=== PATIENT | male | born 1950 | race Caucasian/White ===

== ENCOUNTER 2018-08-05 12:29 | Emergency (ER) | payer OTHER, MEDICARE ==
[~2018-08-05] VITALS: Ht 198.1 cm; Wt 131.5 kg
[~2018-08-05 12:29] MED LIST: ASPIRIN EC81 MG PO; ATORVASTATIN CA80 MG PO; BENADRYL25 MG PO; LISINOPRIL10 MG PO; METOPROLOL TART50 MG PO; PRILOSEC OTC20 MG PO; SULFACETAMIDE S15 ML OD
== END 2018-08-05 14:20 | disposition home or self-care (01) ==
LOC: ED 12:29
DX: S01.81XA Laceration without foreign body of other part of head, initial encounter (principal); S80.02XA Contusion of left knee, initial encounter; I10 Essential (primary) hypertension; I25.2 Old myocardial infarction; Z95.5 Presence of coronary angioplasty implant and graft; Z87.891 Personal history of nicotine dependence; Z90.49 Acquired absence of other specified parts of digestive tract; Z88.5 Allergy status to narcotic agent; Z79.899 Other long term (current) drug therapy; Z79.82 Long term (current) use of aspirin; W01.0XXA Fall on same level from slipping, tripping and stumbling without subsequent striking against object, initial encounter; Z23 Encounter for immunization
CPT/HCPCS: 90715; 99283

== ENCOUNTER 2019-08-13 15:36 | Emergency (ER) | payer OTHER ==
[~2019-08-13] VITALS: Ht 198.1 cm; Wt 131.5 kg
[2019-08-13] MEDS ORDERED: CLEOCIN HCL300 MG PO (15:59)
== END 2019-08-13 16:11 | disposition home or self-care (01) ==
LOC: ED 15:36
DX: S60.552A Superficial foreign body of left hand, initial encounter (principal); I10 Essential (primary) hypertension; I25.2 Old myocardial infarction; Z95.5 Presence of coronary angioplasty implant and graft; Z87.891 Personal history of nicotine dependence; Z90.49 Acquired absence of other specified parts of digestive tract; Z88.5 Allergy status to narcotic agent; Z79.82 Long term (current) use of aspirin; Z79.899 Other long term (current) drug therapy; Z23 Encounter for immunization; W45.0XXA Nail entering through skin, initial encounter
CPT/HCPCS: 90471; 90715; 99283

== ENCOUNTER 2019-10-09 10:19 | Emergency (ER) | payer OTHER ==
[~2019-10-09] VITALS: Ht 198.1 cm; Wt 131.5 kg
--- OUTSIDE RECORDS SUMMARY | ~2019-10-09 | XMS | Encounter Summary ---
Demographics + + + | Address | [address] | | | [place] [address] | + + + | Home Phone | | + + + | Preferred Language | Unknown | + + + | Marital Status | | + + + | Worship Affiliation | Unknown | + + + | Race | Unknown | + + + | Ethnic Group | Unknown | + + + Author + + + | Author | [facility] | | | and [place] | + + + | Organization | [facility] | | | and [place] | + + + | Address | Unknown | + + + | Phone | Unavailable | + + + Care Team Providers + +------+ + | Care Program Dir Name | Role | Phone | + +------+ + PCP | Unavailable | + +------+ + Encounter Details +--------+ + + + + | Date | Type | Department | Care Team | Description | +--------+ + + + + | 09/05/ | Orders Only | [facility] | Reji Joy MD | | | 2018 | | CARDIOLOGY [place] | [address] | | | | | [address] | [place] [address] | | | | | [place], [place] | [phone] | | | | | [address] | | | | | | [phone] | | | +--------+ + + + + Social History + +-------+ +--------+------+ | Tobacco Use | Types | Packs/Day | Years | Date | | | | | Used | | + +-------+ +--------+------+ | Former Smoker | | | | | + +-------+ +--------+------+ + + | Comments: quit over 25 years as of 06/2014 | + + + + + | Sex Assigned at | Date Recorded | | | | + + + | Not on file | | + + + + + + + | Job Start Date | Occupation | Industry | + + + + | Not on file | Not on file | Not on file | + + + + + + + + | Travel History | Travel Start | Travel End | + + + + + + | No recent travel history available. | + + documented as of this encounter Plan of Treatment Not on filedocumented as of this encounter Visit Diagnoses Not on filedocumented in this encounter"
--- OUTSIDE RECORDS SUMMARY | ~2019-10-09 | XMS | Encounter Summary ---
Demographics + + + | Address | [address] | | | [place] [address] | + + + | Home Phone | | + + + | Preferred Language | Unknown | + + + | Marital Status | | + + + | Mosque Affiliation | Unknown | + + + | Race | Unknown | + + + | Ethnic Group | Unknown | + + + Author + + + | Author | [facility] | | | and [place] | + + + | Organization | [facility] | | | and [place] | + + + | Address | Unknown | + + + | Phone | Unavailable | + + + Care Team Providers + +------+ + | Care Polish Compounder Name | Role | Phone | + +------+ + PCP | Unavailable | + +------+ + Encounter Details +--------+ + + + + | Date | Type | Department | Care Team | Description | +--------+ + + + + | 07/12/ | Orders Only | [facility] | Conversion | | | 2015 | | CONVERSION [address] | Transaction, | | | | | [address] | Provider Unknown | | | | | [place], [place] | [phone] | | | | | [address] | | | | | | [phone] | | | +--------+ + + + + Social History + +-------+ +--------+------+ | Tobacco Use | Types | Packs/Day | Years | Date | | | | | Used | | + +-------+ +--------+------+ | Never Assessed | | | | | + +-------+ +--------+------+ + + + | Sex Assigned at [...]
--- OUTSIDE RECORDS SUMMARY | ~2019-10-09 | XMS | Encounter Summary ---
Demographics + + + | Address | [address] | | | [place] [address] | + + + | Home Phone | | + + + | Preferred Language | Unknown | + + + | Marital Status | | + + + | Bahai Affiliation | Unknown | + + + | Race | Unknown | + + + | Ethnic Group | Unknown | + + + Author + + + | Author | [facility] | | | and [place] | + + + | Organization | [facility] | | | and [place] | + + + | Address | Unknown | + + + | Phone | Unavailable | + + + Care Team Providers + +------+ + | Care Head End Desizing Machine Operator Name | Role | Phone | + +------+ + PCP | Unavailable | + +------+ + Encounter Details +--------+ + + + + | Date | Type | Department | Care Team | Description | +--------+ + + + + | 07/15/ | Orders Only | [facility] | Reji Joy MD | | | 2018 | | CARDIOLOGY [place] | [address] | | | | | [address] | [place] [address] | | | | | [place], [place] | [phone] | | | | | [address] | | | | | | [phone] | | | +--------+ + + + [...]
--- OUTSIDE RECORDS SUMMARY | ~2019-10-09 | XMS | Encounter Summary ---
Demographics + + + | Address | [address] | | | [place] [address] | + + + | Home Phone | | + + + | Preferred Language | Unknown | + + + | Marital Status | | + + + | Church Affiliation | Unknown | + + + | Race | Unknown | + + + | Ethnic Group | Unknown | + + + Author + + + | Author | [facility] | | | and [place] | + + + | Organization | [facility] | | | and [place] | + + + | Address | Unknown | + + + | Phone | Unavailable | + + + Care Team Providers + +------+ + | Care School Principal Name | Role | Phone | + +------+ + PCP | Unavailable | + +------+ + Encounter Details +--------+ + + + + | Date | Type | Department | Care Team | Description | +--------+ + + + + | 06/26/ | Orders Only | [facility] | Conversion | | | 2018 | | CONVERSION [address] | Transaction, | | | | | [address] | Provider Unknown | | | | | [place], [place] | [phone] | | | | | [address] | | | | | | [phone] | | | +--------+ + + + [...]
--- OUTSIDE RECORDS SUMMARY | ~2019-10-09 | XMS | Encounter Summary ---
Demographics + + + | Address | [address] | | | [place] [address] | + + + | Home Phone | | + + + | Preferred Language | Unknown | + + + | Marital Status | | + + + | Uatsdin Affiliation | Unknown | + + + | Race | Unknown | + + + | Ethnic Group | Unknown | + + + Author + + + | Author | [facility] | | | and [place] | + + + | Organization | [facility] | | | and [place] | + + + | Address | Unknown | + + + | Phone | Unavailable | + + + Care Team Providers + +------+ + | Care Hay Buckler Name | Role | Phone | + +------+ + PCP | Unavailable | + +------+ + Encounter Details +--------+ + + + + | Date | Type | Department | Care Team | Description | +--------+ + + + + | 12/12/ | Orders Only | [facility] | Reji Joy MD | | | 2016 | | [address] | [address] | | | | | [place], [place] | [place] [address] | | | | | [address] | [phone] | | | | | [phone] | | | +--------+ + + + [...] Not on filedocumented as of this encounter Procedures + +--------+ + + + | Procedure Name | Priori | Date/Time | Associated Diagnosis | Comments | | | ty | | | | + +--------+ + + + | LIPID PANEL | Routin | 12/13/2015 | | Results for this | | | e | 3:27 PM | | procedure are in the | | | | PDT | | results section. | + +--------+ + + + documented in this encounter Results Lipid Panel (12/13/2015 3:27 PM PDT) + + + + + + | Component | Value | Ref Range | Performed | Pathologist | | | | | At | Signature | + + + + + + | Cholesterol | 115 | mg/dL | EXTERNAL | | | | | | LAB | | + + + + + + | Triglycerid | 87 | mg/dL | EXTERNAL | | | es | | | LAB | | + + + + + + | HDL | 39 (L) | mg/dL | EXTERNAL | | | | | | LAB | | + + + + + + | LDL, | 59Comment: Testing | mg/dL | EXTERNAL | | | Calculated | performed at [facility];[address] | | LAB | | | [address];[place] [address] | | | | + + + + + + + + | Specimen | + + | Blood specimen | | (specimen) | + + + +---------+ + + | Performing | Address | City/State/Zipcode | Phone Number | | Organization | | | | + +---------+ + + | EXTERNAL LAB | | | | + +---------+ + + documented in this encounter Visit Diagnoses Not on filedocumented in this encounter"
--- OUTSIDE RECORDS SUMMARY | ~2019-10-09 | XMS | Clinical Summary ---
Demographics + + + | Address | [address] | | | [place] [address] | + + + | Home Phone | | + + + | Preferred Language | Unknown | + + + | Marital Status | | + + + | Worship Affiliation | Unknown | + + + | Race | Unknown | + + + | Ethnic Group | Unknown | + + + Author + + + | Author | [facility] | | | and [place] | + + + | Organization | [facility] | | | and [place] | + + + | Address | Unknown | + + + | Phone | Unavailable | + + + Care Team Providers + +------+ + | Care Roof Cement And Paint Maker Name | Role | Phone | + +------+ + PCP | Unavailable | + +------+ + Allergies + + + + + + | Active Allergy | Reactions | Severity | Noted | Comments | | | | | Date | | + + + + + + | Codeine | Nausea And Vomiting | Medium | /08/13 | | | | | | 15 | | + + + + + + Medications + + + +---------+------+------+-------+ | Medication | Sig | Dispensed | Refills | Star | End | Statu | | | | | | t | Date | s | | | | | | Date | | | + + + +---------+------+------+-------+ | | Take 4 tablets by | | 0 | 02/ | | Activ | | Ibuprofen-diphenhydr | mouth every evening. | | | 11/13 | | e | | AMINE Cit (IBUPROFEN | | | | 15 | | | | PM) 200-38 MG TABS | | | | | | | + + + +---------+------+------+-------+ | omeprazole | Take 20 mg by mouth | | 0 | 11/24 | | Activ | | (PRILOSEC) 20 mg | every morning before | | | 02/13 | | e | | capsule | breakfast. | | | 16 | | | + + + +---------+------+------+-------+ | diphenhydrAMINE | Take 50 mg by mouth | | 0 | 01/3 | | Activ | | (BENADRYL) 50 mg | every 6 (six) hours | | | 06/15 | | e | | capsule | as needed for | | | 18 | | | | | Itching. | | | | | | + + + +---------+------+------+-------+ | aspirin 81 MG EC | Take 1 tablet by | 90 | 3 | 06/27 | | Activ | | tablet | mouth daily. | tablet | | 02/13 | | e | | | | | | 18 | | | + + + +---------+------+------+-------+ | lisinopril | Take 1 tablet by | 90 | 3 | 02/1 | | Activ | | (PRINIVIL, ZESTRIL) | mouth daily. | tablet | | 9/20 | | e | | 10 mg tablet | | | | 18 | | | + + + +---------+------+------+-------+ | metoprolol | Take 0.5 tablets by | 90 | 3 | 02/1 | | Activ | | tartrate (LOPRESSOR) | mouth 2 (two) times | tablet | | 9/20 | | e | | 50 mg tablet | daily. | | | 18 | | | + + + +---------+------+------+-------+ | atorvaSTATin | Take 1 tablet by | 90 | 3 | 04/1 | | Activ | | (LIPITOR) 80 MG | mouth daily. | tablet | | 2/20 | | e | | tablet | | | | 18 | | | + + + +---------+------+------+-------+ Active Problems + + + | Problem | Noted Date | + + + | Other chest pain | 06/29/2014 | + + + | Acute DC, inferior wall, initial episode of care | 06/29/2014 | + + + | CAD (coronary artery disease), [place] coronary artery | 06/29/2014 | + + + | CAD (coronary artery disease) | | + + + + + | Overview: s/p stenting of the proximal ricght coronary artery | | with a 4x16 mm Promus Premier drug-eluting stent | + + + +---+ | HTN (hypertension) | | + +---+ | Hx of acute myocardial infarction of inferior wall | | + +---+ | Right shoulder injury | | + +---+ + + | Overview: vein grafting of artery | + + + +---+ | DJD (degenerative joint disease) | | + +---+ | Hyperlipidemia | | + +---+ Family History + + +------+ + | Medical History | Relation | Name | Comments | + + +------+ + | Alcohol abuse | Father | | | + + +------+ + | Heart attack | Maternal | | | | | Grandfath | | | | | er | | | + + +------+ + + +------+ + + | Relation | Name | Status | Comments | + +------+ + + | Father | | | | + +------+ + + | Father | | | | + +------+ + + | Maternal Grandfather | | | | + +------+ + + | Maternal Grandfather | | | | + +------+ + + | Mother | | | | + +------+ + + Social History + +-------+ +--------+------+ [...] recent travel history available. | + + Last Filed Vital Signs + + + + + | Vital Sign | Reading | Time Taken | Comments | + + + + + | Blood Pressure | 142/72 | 06/26/2017 1:24 PM | | | | | PST | | + + + + + | Pulse | 56 | 06/26/2017 1:24 PM | | | | | PST | | + + + + + | Temperature | - | - | | + + + + + | Respiratory Rate | 16 | 06/26/2017 1:24 PM | | | | | PST | | + + + + + | Oxygen Saturation | - | - | | + + + + + | Inhaled Oxygen | - | - | | | Concentration | | | | + + + + + | Weight | 125.6 kg (277 lb) | 06/26/2017 1:24 PM | | | | | PST | | + + + + + | Height | 200.7 cm (6' 7") | 06/26/2017 1:24 PM | | | | | PST | | + + + + + | Body Mass Index | 31.21 | 06/26/2017 1:24 PM | | | | | PST | | + + + + + Plan of Treatment + + + + + | Health Maintenance | Due Date | Last Done | Comments | + + + + + | Vaccine: | | | | | Dtap/Tdap/Td (1 - | 0 | | | | Tdap) | | | | + + + + + | Vaccine: Zoster (1 | | | | | of 2) | 9 | | | + + + + + | Vaccine: | | | | | Pneumococcal 65+ (1 | 4 | | | | of 2 - PCV13) | | | | + + + + + | Vaccine: Influenza | | | | | (Season Ended) | 0 | | | + + + + + Results Not on filefrom Last 3 Months
--- OUTSIDE RECORDS SUMMARY | ~2019-10-09 | XMS | Encounter Summary ---
Demographics + + + | Address | [address] | | | [place] [address] | + + + | Home Phone | | + + + | Preferred Language | Unknown | + + + | Marital Status | | + + + | Zoroastrianism Affiliation | Unknown | + + + | Race | Unknown | + + + | Ethnic Group | Unknown | + + + Author + + + | Author | [facility] | | | and [place] | + + + | Organization | [facility] | | | and [place] | + + + | Address | Unknown | + + + | Phone | Unavailable | + + + Care Team Providers + +------+ + | Care Housing Grant Analyst Name | Role | Phone | + [...] [address] | | | | | [place], [place] | [place] [address] | | | | | [address] | [phone] | | | | | [phone] | | | +--------+ + + + [...] | | | Calculated | performed at [facility];[address] | | LAB | | | | [address] | | | | | [address];[place] [address] | | | | + + + [...]
--- OUTSIDE RECORDS SUMMARY | ~2019-10-09 | XMS | Encounter Summary ---
Demographics + + + | Address | [address] | | | [place] [address] | + + + | Home Phone | | + + + | Preferred Language | Unknown | + + + | Marital Status | | + + + | Christian Affiliation | Unknown | + + + | Race | Unknown | + + + | Ethnic Group | Unknown | + + + Author + + + | Author | [facility] | | | and [place] | + + + | Organization | [facility] | | | and [place] | + + + | Address | Unknown | + + + | Phone | Unavailable | + + + Care Team Providers + +------+ + | Care Machine Tool Operator Name | Role | Phone | + +------+ + PCP | Unavailable | + +------+ + Encounter Details +--------+ + + + + | Date | Type | Department | Care Team | Description | +--------+ + + + + | 07/15/ | Orders Only | [facility] | Reji Joy MD | | | 2018 | | CARDIOLOGY [place] | [address] | | | | | [address] | [place] [address] | | | | | [place], [place] | [phone] | | | | | [address] | | | | | | [phone] | | | +--------+ + + + [...]
--- OUTSIDE RECORDS SUMMARY | ~2019-10-09 | XMS | Clinical Summary ---
Demographics + + + | Address | [address] | | | [place] [address] | + + + | Home Phone | | + + + | Preferred Language | Unknown | + + + | Marital Status | | + + + | Congregation Affiliation | Unknown | + + + | Race | Unknown | + + + | Ethnic Group | Unknown | + + + Author + + + | Author | [facility] (Historical as of | | | 01-10-19) | + + + | Organization | [facility] (Historical as of | | | 01-10-19) | + + + | Address | Unknown | + + + | Phone | Unavailable | + + + Support + + +---------+ + | Name | Relationship | Address | Phone | + + +---------+ + | Rajat Collins | ECON | Unknown | | + + +---------+ + | Jerilyn Pompa | ECON | Unknown | | + + +---------+ + | Gege Emerson | ECON | Unknown | Unavailable | + + +---------+ + Care Team Providers + +------+ + | Care Manufacturing Manager Name | Role | Phone | + +------+ + | Dr. Tiffanie | PP | Unavailable | + +------+ + Allergies + + + + + + | Active Allergy | Reactions | Severity | Noted | Comments | | | | | Date | | + + + + + + | Codeine | Nausea and Vomiting | Medium | 06/29/19 | | | | | | 15 | | + + + + + + Current Medications + + +--------+---------+------+------+-------+ | Prescription | Sig. | Disp. | Refills | Star | End | Statu | | | | | | t | Date | s | | | | | | Date | | | + + +--------+---------+------+------+-------+ | | Take 4 tablets by | | | | | Activ | | Ibuprofen-Diphenhydr | mouth every evening. | | | | | e | | amine Cit (IBUPROFEN | | | | | | | | PM) 200-38 MG TABS | | | | | | | + + +--------+---------+------+------+-------+ | omeprazole | Take 20 mg by mouth | | | | | Activ | | (PRILOSEC) 20 MG | every morning before | | | | | e | | capsule | breakfast. | | | | | | + + +--------+---------+------+------+-------+ | diphenhydrAMINE | Take 50 mg by mouth | | | | | Activ | | (BENADRYL) 50 MG | every 6 (six) hours | | | | | e | | capsule | as needed for | | | | | | | | Itching. | | | | | | + + +--------+---------+------+------+-------+ | aspirin (ASPIRIN | Take 1 tablet by | 90 | 3 | 02/1 | | Activ | | LOW DOSE) 81 MG EC | mouth daily. | tablet | | 9/20 | | e | | tablet | | | | 18 | | | + + +--------+---------+------+------+-------+ | lisinopril | Take 1 tablet by | 90 | 3 | 02/1 | | Activ | | (ZESTRIL) 10 MG | mouth daily. | tablet | | 9/20 | | e | | tablet | | | | 18 | | | + + +--------+---------+------+------+-------+ | metoprolol | Take 0.5 tablets by | 90 | 3 | 02/1 | | Activ | | (LOPRESSOR) 50 MG | mouth 2 (two) times | tablet | | 9/20 | | e | | tablet | daily. | | | 18 | | | + + +--------+---------+------+------+-------+ | atorvastatin | Take 1 tablet by | 90 | 3 | 04/1 | | Activ | | (LIPITOR) 80 MG | mouth daily. | tablet | | 2/20 | | e | | tablet | | | | 18 | | | + + +--------+---------+------+------+-------+ Active Problems + + + | Problem | Noted Date | + + + | Other chest pain | 06/29/2014 | + + + | Acute [place], inferior wall, initial episode of care | 06/29/2014 | + + + | CAD (coronary artery disease), [place] coronary artery | 06/29/2014 | + + [...] Comments | + + +------+ + | Alcoholism | Father | | | + + [...] + +------+ + + Social History + + + +--------+------+ | Tobacco Use | Types | Packs/Day | Years | Date | | | | | Used | | + + + +--------+------+ | Former Smoker | Cigarettes | | | | + + + +--------+------+ + +---+---+---+ | Smokeless Tobacco: | | | | | Never Used | | | | + +---+---+---+ + + | Comments: quit over 25 years as of 06/2014 | + + + + +---------+ + | Alcohol Use | Drinks/We | oz/Week | Comments | | | ek | | | + + +---------+ + | Yes | | | weekly | + + +---------+ + + + + | Sex Assigned at | Date Recorded | | | | + + + | Not on file | | + + + Last Filed Vital Signs + + + + | Vital Sign | Reading | Time Taken | + + + + | Blood Pressure | 142/72 | 06/26/2017 1:24 PM PST | + + + + | Pulse | 56 | 06/26/2017 1:24 PM PST | + + + + | Temperature | 36.7 C (98 F) | 07/02/2014 12:03 PM PST | + + + + | Respiratory Rate | 16 | 06/26/2017 1:24 PM PST | + + + + | Oxygen Saturation | 96% | 06/26/2017 1:24 PM PST | + + + + | Inhaled Oxygen | - | - | | Concentration | | | + + + + | Weight | 125.6 kg (277 lb) | 06/26/2017 1:24 PM PST | + + + + | Height | 200.7 cm (6' 7") | 06/26/2017 1:24 PM PST | + + + + | Body Mass Index | 31.21 | 06/26/2017 1:24 PM PST | + + + + Plan of Treatment + + + + + | Health Maintenance | Due Date | Last Done | Comments | + + + + + | Vaccine: | | | | | Dtap/Tdap/Td (1 - | 8 | | | | Tdap) | | | | + + + + + | Colon Cancer | | | | | Screening | 9 | | | | (Colonoscopy) | | | | + + + + + | Vaccine: Zoster (1 | | | | | of 2) | 9 | | | + + + + + | Vaccine: | | | | | Pneumococcal 65+ | 4 | | | | Low/Medium Risk (1 | | | | | of 2 - PCV13) | | | | + + + + + | Vaccine: Influenza | | 07/24/2016 | | | (Season Ended) | 0 | | | + + + + + Results Not on filefrom Last 3 Months Insurance + +--------+ +------+ + + | Payer | Benefi | Subscriber | Type | Phone | Address | | | t Plan | ID | | | | | | / | | | | | | | Group | | | | | + +--------+ +------+ + + | MEDICARE | MEDICA | [id number] | | | [address] | | | [place] | | | | [place] [address] | | | IP-OP | | | | | + +--------+ +------+ + + | [facility] | [place] | [id number] | | | | | | | | | | | | | HEALTH | | | | | | | CARE - | | | | | | | AARP | | | | | + +--------+ +------+ + + | [employer] | [employer] | [id number] | | [phone] [employer] [id number] | | ADMINISTRATION | [place] | | | [phone] | | | [address] | | | | [address] [place] | | | [place] | | | | [phone] | | | ON | | | | | + +--------+ +------+ + + + +--------+ +--------+ + + | Guarantor Name | Accoun | Relation to | Date | Phone | Billing Address | | | t Type | Patient | of | | | | | | | | | | + +--------+ +--------+ + + | MARY EMERSON | Person | Self [birth year] | Home: | [address] | | | al/Fam | | 1951 | [phone] | [place] | | | [place] | | | [address] | [phone] | + +--------+ +--------+ + + | MARY EMERSON | Vetera | Self | [birth year] | Home: | [address] | | | ns | | 1951 | [phone] | [place] | | | [place] | | | [address] | [phone] | | | strati | | | | | | | on | | | | | + +--------+ +--------+ + +
--- OUTSIDE RECORDS SUMMARY | ~2019-10-09 | XMS | Encounter Summary ---
Demographics + + + | Address | [address] | | | [place] [address] | + + + | Home Phone | | + + + | Preferred Language | Unknown | + + + | Marital Status | | + + + | Holiness Affiliation | Unknown | + + + | Race | Unknown | + + + | Ethnic Group | Unknown | + + + Author + + + | Author | [facility] | | | and [place] | + + + | Organization | [facility] | | | and [place] | + + + | Address | Unknown | + + + | Phone | Unavailable | + + + Care Team Providers + +------+ + | Care Margarine Churn Operator Name | Role | Phone | + +------+ + PCP | Unavailable | + +------+ + Encounter Details +--------+ + + + + | Date | Type | Department | Care Team | Description | +--------+ + + + + | 06/29/ | Hospital | [facility] | Reji Joy MD | Acute MT, inferior | | 2015 - | Encounter | [facility] | [address] | [address] | | | | INTENSIVE CARE UNIT | [place] [address] | episode of care | | 07/02/ | | [address] | [phone] | ([facility]); CAD (coronary | | 2014 | | [place], [place] | | artery disease), | | | | [address] | | [place] coronary | | | | [phone] | | artery | +--------+ + + + + Social [...] + + documented as of this encounter Discharge Summaries Reji Joy MD - 07/02/2014 11:57 AM PSTFormatting of this note might be different from t he original. Discharge Summaries by Reji Joy MD at 07/02/14 0461 Author: Reji Joy MD Service: Cardiology Author Type: Physician Filed: 07/04/14 3145 Date of Service: 07/02/14 9034 Status: Signed Composition Siding Worker: Reji Joy MD (Physician) Related Notes: Original Note by Reji Joy MD (Physician) filed at 07/02/14 1201 [facility] Service: Cardiology Discharge Summary Date of Admission: 06/29/2014 Date of Discharge: 07/02/2014 Discharge Physician: Reji Joy MD Discharge Diagnoses: 1. Acute inferior myocardial infarction status post stenting of the proximal right coronary artery with a 4 x 16 mm Promus Premier drug-eluting stent. 2. Preserved left ventricular systolic function. 3. One vessel coronary artery disease, as above. 4. Hypertension. BRIEF HISTORY OF PRESENTATION: Mary Emerson is a 63 y.o. male who Presented initially to [facility] with subsequent chest pain and was diagnosed with ST elevation in the inferior leads. He wa s transferred to [facility] for further care. For details regarding his presentation kindly refer to my H+P. No past medical history on file. No past surgical history on file. Allergies Allergen Reactions Codeine Nausea and Vomiting HOSPITAL COURSE: Mr. Emerson was taken to the catheterization lab on an emergent basis. Coronary angiography s uggested the presence of one vessel coronary artery disease with subtotal occlusion of the p roximal RCA which was primary stented with a 4 x 16 mm Promus Premier drug-eluting stent. Hi s left ventricular systolic function remained preserved. He was admitted to the intensive ca re unit as overflow from cardiac unit. He did well although he did have a couple of episodes of nonsustained ventricular tachycardia the first 24 hours after his presentation but that totally resolved thereafter. He has been ambulatory for 3 days with no recurrent chest pain. His CPK peaked at 1500, however came down to 202 today. He did have a small right groin hem atoma but his CBC remained stable. He will be discharged home in stable condition. He will f ollowup with me in 10 days. Mr. Emerson is a nonsmoker. I did talk to him about cardiac rehabilitation however at this p oint he lives in [place] where a cardiac rehab program is not available. I did talk to him about activities and diet extensively. Medication List START taking these medications aspirin 81 MG EC tablet QTY: 30 tablet Refills: 11 Take 1 tablet by mouth daily with breakfast. atorvastatin 80 MG tablet QTY: 30 tablet Refills: 11 Commonly known as: LIPITOR Take 1 tablet by mouth daily. clopidogrel 75 MG tablet QTY: 30 tablet Refills: 11 Commonly known as: PLAVIX Take 1 tablet by mouth daily. lisinopril 5 MG tablet QTY: 30 tablet Refills: 11 Commonly known as: ZESTRIL Take 1 tablet by mouth daily. metoprolol 25 MG tablet QTY: 60 tablet Refills: 11 Commonly known as: LOPRESSOR Take 1 tablet by mouth 2 (two) times daily. 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 You may get the following medications from any pharmacy - aspirin 81 MG EC tablet - atorvastatin 80 MG tablet - clopidogrel 75 MG tablet - lisinopril 5 MG tablet - metoprolol 25 MG tablet Disposition: Home Condition: Stable. Code Status: Full code Follow up: Per Pt None Reji Joy MD [address] [place] [id number] In 10 days Discharge took 25 minutes, to include final examination, discussion of admission, and prepa ration of prescriptions, instructions for on-going care, follow-up and documentation of disc harge summary. Reji Joy MD 07/02/2014 11:58 AM documented in this enco unter Medications at Time of Discharge + + + +---------+ + + | Medication | Sig | Dispensed | Refills | Start | End Date | | | | | | Date | | + + + +---------+ + + | metoprolol | Take 1 tablet by | 60 | 11 | 07/02/19 | | | tartrate (LOPRESSOR) | mouth 2 (two) times | tablet | | 15 | 6 | | 25 mg tablet | daily. | | | | | + + + +---------+ + + documented as of this encounter Progress Notes Conversion Transaction, Provider Unknown - 07/02/2014 12:26 PM PSTFormatting of this note m ight be different from the original. Progress Notes by Berkley Dillard RN at 07/02/141225 Author: Berkley Dillard RN Service: (none) Author Type: Registered Nurse Filed: 07/02/141225 Date of Service: 07/02/141225 Status: Signed Composition Siding Worker: Berkley Dillard RN (Registered Nurse) Discharge orders and prescriptions reviewed, patient stable at time of discharge, taken via wheelchair. Tele notified Reji Cormier MD - 07/01/2014 6:26 PM PSTFormatting of this note might be different from the orig inal. Progress Notes by Reji Joy MD at 07/01/141825 Author: Reji Joy MD Service: Cardiology Author Type: Physician Filed: 07/03/142015 Date of Service: 07/01/141825 Status: Signed Composition Siding Worker: Reji Joy MD (Physician) Related Notes: Original Note by Reji Joy MD (Physician) filed at 07/01/141828 [facility] Service: Cardiology/[facility] Progress Note RE: Mary Emerson : 1950 DATE OF SERVICE: 06/29/2014 PROVIDER:Reji Joy Pt is seen for F/U on: Acute MT SUBJECTIVE: Mary was ambulatory overnight and since yesterday. He has not had any significant symptom s of chest pain or shortness of breath. He had no further episodes of nonsustained ventricul ar tachyarrhythmias. CURRENT MEDICATIONS: Scheduled Meds: aspirin 81 mg Oral Daily with breakfast atorvastatin 80 mg Oral Daily clopidogrel 75 mg Oral Daily lisinopril 5 mg Oral Daily metoprolol 25 mg Oral BID pneumococcal 23-valent vaccine 0.5 mL Intramuscular Once Immunization Continuous Infusions: PRN Meds:.acetaminophen OR acetaminophen, fentaNYL OR fentaNYL, hydrALAZINE, nitroG LYCERIN, ondansetron OR ondansetron, polyethylene glycol, sodium chloride 0.9 %, zolpide m ALLERGIES: Allergies Allergen Reactions Codeine Nausea and Vomiting PHYSICAL EXAM: BP 125/67 | Pulse 86 | Temp(Src) 98.8 F (37.1 C) (Oral) | Resp 16 | Ht 2. 007 m (6' 7") | Wt 130.7 kg (288 lb 2.3 oz) | BMI 32.45 kg/m2 | SpO2 97% Intake/Output Summary (Last 24 hours) at 07/01/141825 Last data filed at 07/01/14 0837 Gross per 24 hour Intake 350 ml Output 400 ml Net -50 ml General Appearance: Alert, oriented, cooperative, no distress, appears stated age HEENT: No xanthelasmas. Extraocular movements were intact. No jaundice. Pupiles round and reactive. NECK: no JVD, lymphadenopathy. Trachea is at midline. Thyroid is not palpable. CARDIAC: There is normal S1 and S2. No added sounds, murmurs, gallop, or rub. CHEST: Normal bilateral symmetrical chest excursion. Good bilateral air entry with no crack les or wheezing. No evidence of dullness. ABDOMEN: Soft and lax. No tenderness. No palpable organs. Active bowel sounds. EXTREMITIES: No lower extremities edema. Right groin ecchymosis. NEURO: Alert and oriented times three with no focal deficit. Cranial nerves are grossly no rmal. SKIN: No bruises or rash. Lab Review Lab Results Component Value Date NA 137 06/30/2014 K 4.0 06/30/2014 CL 104 06/30/2014 CO2 26 06/30/2014 BUN 11 06/30/2014 CREATININE 0.86 06/30/2014 Lab Results Component Value Date CKTOTAL 1509* 06/30/2014 Lab Results Component Value Date HGB 14.6 06/30/2014 HCT 42.4 06/30/2014 Lab Results Component Value Date GLUF 121* 06/30/2014 Cardiographics ECG: Imaging Chest X-Ray: Echocardiogram: Cath: ASSESSMENT: 1. Status post acute inferior myocardial infarction. 2. One vessel coronary artery disease. 3. Status post stenting of the proximal right coronary artery with a 4 x 16 mm Promus Premi er drug-eluting stent. 4. Preserved left ventricular systolic function. PLAN: Mary has done well over the past 24 hours with no further episodes of nonsustained suprav entricular tachycardia. He does have mild small ecchymoses in the right groin area, however this has been stable. We will check CPK tomorrow as well as CBC. If his CPK is within normal limits he can be discharged home. Reji Joy MD 07/01/2014 6:26 PM onversion Transaction, Provider Unknown - 07/01/2014 3:25 PM PSTFormatting of this note might be different from t he original. Case Management by MARCELINO Lara at 07/01/14 0024 Author: MARCELINO Lara Service: (none) Author Type: Tire Technician Filed: 07/01/14 1529 Date of Service: 07/01/14 1525 Status: Signed Composition Siding Worker: MARCELINO Lara (Tire Technician) 07/01/14 1522 Discharge Planning Evaluation Admitting Diagnosis acute MT Readmission No Living Arrangements Spouse/significant other;Children Support Systems Spouse/significant other;Children Type of Residence Private residence House type House-1 story Steps to enter 1 Bathrooms on 1st Floor 1-Full Independent with ADL's Yes Independent with Mobility Yes (does not own/use cane, walker, w/c) Mental Status Oriented Prior functional status Pt is indepdent in ADLs and IADLs (drives). Pt works in [employer] and appears fairly active Resources Financial concerns No Transportation issues No Patient/Family concerns No Prescription Plan Yes Previous home health equipment No Vascular access device No Ostomy/Drains/Appliances No Anticipated Disposition Facility Type Home Met with: pt and discussed discharge planning, Pt is a 63 y.o., male who lives w/ and son. Pt mag es taking blood thinners, no HH, no home 02. Pt was sitting upright in his chair. Pt repor ts or son can provide 24 hr supervision x 2 weeks. Patient's PCP is: PER PT NONE Patient's insurance: Medicare Part A/ [place] Coverage concerns: no Medication coverage/concerns: yes/no Community resources utilized / needed: Assistance in transportation: Family to transport Identification of any specific education / training: Barriers to Discharge / Alternative housing needed: Anticipated DCP: return home MARCELINO Lara onver armando Huang, Provider Unknown - 06/30/2014 10:07 AM PST Nurse Progress Note by Dasia Santillan RN at 06/30/14 1007 Author: Dasia Santillan RN Service: (none) Author Type: Registered Nurse Filed: 06/30/14 1010 Date of Service: 06/30/14 1007 Status: Signed Composition Siding Worker: Dasia Santillan RN (Registered Nurse) Spoke with Dr. Joy regarding SCD's. He stated there was no indication as patient was amb ulatory and received large dose of heparin yesterday. Dr. Joy stated he would address SCD 's in his progress note today. Reji Cormier MD - 06/30/2014 9:05 AM PSTFormatting of this note might be different from the orig inal. Progress Notes by Reji Joy MD at 06/30/14904 Author: Reji Joy MD Service: Cardiology Author Type: Physician Filed: 07/03/141835 Date of Service: 06/30/14904 Status: Signed Composition Siding Worker: Reji Joy MD (Physician) Related Notes: Original Note by Reji Joy MD (Physician) filed at 06/30/141938 [facility] Service: Cardiology/[facility] Progress Note RE: Mary Emerson : 1950 DATE OF SERVICE: 06/29/2014 PROVIDER:Reji Joy Pt is seen for F/U on: Acute MT SUBJECTIVE: Mary did well after his event yesterday. He did have a small hematoma during the night in his right groin and FemoStop had to be applied for a prolonged period of time. Nevertheless he is feeling no chest pain or nausea. CURRENT MEDICATIONS: Scheduled Meds: aspirin 81 mg Oral Daily with breakfast atorvastatin 80 mg Oral Daily clopidogrel 75 mg Oral Daily lisinopril 5 mg Oral Daily metoprolol 25 mg Oral BID pneumococcal 23-valent vaccine 0.5 mL Intramuscular Once Immunization Continuous Infusions: PRN Meds:.acetaminophen OR acetaminophen, fentaNYL OR fentaNYL, hydrALAZINE, nitroG LYCERIN, ondansetron OR ondansetron, polyethylene glycol, zolpidem ALLERGIES: Allergies Allergen Reactions Codeine Nausea and Vomiting PHYSICAL EXAM: BP 124/67 | Pulse 70 | Temp(Src) 98.4 F (36.9 C) (Oral) | Resp 17 | Ht 2. 007 m (6' 7") | Wt 130.7 kg (288 lb 2.3 oz) | BMI 32.45 kg/m2 | SpO2 99% Intake/Output Summary (Last 24 hours) at 06/30/14904 Last data filed at 06/30/14620 Gross per 24 hour Intake 1006 ml Output 1550 ml Net -544 ml General Appearance: Alert, oriented, cooperative, no distress, appears stated age HEENT: No xanthelasmas. Extraocular movements were intact. No jaundice. Pupiles round and reactive. NECK: no JVD, lymphadenopathy. Trachea is at midline. Thyroid is not palpable. CARDIAC: There is normal S1 and S2. No added sounds, murmurs, gallop, or rub. CHEST: Normal bilateral symmetrical chest excursion. Good bilateral air entry with no crack les or wheezing. No evidence of dullness. ABDOMEN: Soft and lax. No tenderness. No palpable organs. Active bowel sounds. EXTREMITIES: No lower extremities edema. 4X5 cm right groin hematoma. NEURO: Alert and oriented times three with no focal deficit. Cranial nerves are grossly no rmal. SKIN: No bruises or rash. Lab Review Lab Results Component Value Date NA 137 06/30/2014 K 4.0 06/30/2014 CL 104 06/30/2014 CO2 26 06/30/2014 BUN 11 06/30/2014 CREATININE 0.86 06/30/2014 Lab Results Component Value Date CKTOTAL 1509* 06/30/2014 Lab Results Component Value Date HGB 14.6 06/30/2014 HCT 42.4 06/30/2014 Lab Results Component Value Date GLUF 121* 06/30/2014 Cardiographics ECG: Imaging Cath: 1. Acute inferior myocardial infarction. 2. Preserved overall left ventricular systolic function. 3. One-vessel coronary artery disease 4. Status post primary stenting of proximal right coronary artery with 4 x 16 mm Promus Premier drug-eluting stent. 5. The patient will be admitted to cardiac unit for further aggressive medical therapy. ASSESSMENT: 1. Anterior-posterior myocardial infarction status post stenting of proximal right coronary artery with 4 x 16 mm Promus Premier drug-eluting stent. 2. Preserved left ventricular systolic function. 3. Small right groin hematoma. PLAN: Overall he has done well aside from his mild small hematoma. His hemoglobin has been stable . We will follow his CPK. He will be ambulated today. We will get an echocardiogram to reeva luate the left ventricular systolic function and rule out mechanical complications of his MT . Reji Joy MD 06/30/2014 9:05 AM ani Frederick RPH - 06/29/2014 6:52 PM PST Progress Notes by Rani Frederick RPH at 06/29/141851 Author: Rani Frederick RPH Service: (none) Author Type: Pharmacist Filed: 06/29/141851 Date of Service: 06/29/141851 Status: Signed Composition Siding Worker: Rani Frederick RPH (Pharmacist) Clinical Pharmacy Note - Renal Dose Adjustment Mary Emerson 63 y.o. male Ht Readings from Last 1 Encounters: 06/29/14 2.007 m (6' 7") Wt Readings from Last 1 Encounters: 06/29/14 130.7 kg (288 lb 2.3 oz) No results found for this basename: creatinine Creatinine clearance cannot be calculated (Patient has no serum creatinine result on file.) Pharmacy to renally adjust medications per Dr. Joy Plan: No current Scr. Will follow up once labs are available. Pharmacy will continue to follow and adjust as appropriate. Pharmacist: Rani Frederick 06/29/2014 6:51 PM documente d in this encounter Plan of Treatment Not on filedocumented as of this encounter Procedures + +--------+ + + + | Procedure Name | Priori | Date/Time | Associated Diagnosis | Comments | | | ty | | | | + +--------+ + + + | EXTERNAL LAB: CBC | Routin | 07/02/2014 | | Results for this | | | e | 4:25 AM | | procedure are in the | | | | PST | | results section. | + +--------+ + + + | CK TOTAL | Routin | 07/02/2014 | | Results for this | | | e | 4:25 AM | | procedure are in the | | | | PST | | results section. | + +--------+ + + + | ECHO COMPLETE W | Routin | 06/30/2014 | | Results for this | | CONTRAST | e | 10:31 AM | | procedure are in the | | | | PST | | results section. | + +--------+ + + + | ECG 12 LEAD | Routin | 06/30/2014 | | Results for this | | | e | 5:35 AM | | procedure are in the | | | | PST | | results section. | + +--------+ + + + | HEMOGLOBIN AND | Routin | 06/30/2014 | | Results for this | | HEMATOCRIT | e | 4:13 AM | | procedure are in the | | | | PST | | results section. | + +--------+ + + + | CK TOTAL | Routin | 06/30/2014 | | Results for this | | | e | 4:13 AM | | procedure are in the | | | | PST | | results section. | + +--------+ + + + | BASIC METABOLIC | Routin | 06/30/2014 | | Results for this | | PANEL | e | 4:13 AM | | procedure are in the | | | | PST | | results section. | + +--------+ + + + | ECG 12 LEAD | Routin | 06/29/2014 | | Results for this | | | e | 5:04 PM | | procedure are in the | | | | PST | | results section. | + +--------+ + + + | CV CARDIAC PROCEDURE | Routin | 06/29/2014 | | Results for this | | | e | 4:25 PM | | procedure are in the | | | | PST | | results section. | + +--------+ + + + | CV CARDIAC PROCEDURE | Routin | 06/29/2014 | | Results for this | | | e | 4:25 PM | | procedure are in the | | | | PST | | results section. | + +--------+ + + + | ACTIVATED CLOTTING | Routin | 06/29/2014 | | Results for this | | TIME | e | 4:12 PM | | procedure are in the | | | | PST | | results section. | + +--------+ + + + | ACTIVATED CLOTTING | Routin | 06/29/2014 | | Results for this | | TIME | e | 4:02 PM | | procedure are in the | | | | PST | | results section. | + +--------+ + + + documented in this encounter Results External Lab: CBC (07/02/2014 4:25 AM PST) + + + + + + | Component | Value | Ref Range | Performed | Pathologist | | | | | At | Signature | + + + + + + | WBC | 6.2Comment: Testing | 3.8 - 11.0 K/uL | EXTERNAL | | | | performed at [facility], [address] | | LAB | | | | [address], | | | | | | [place] [address] | | | | + + + + + + | Red Blood | 4.47Comment: Testing | 4.20 - 5.70 | EXTERNAL | | | Cells | performed at [facility], [address] | M/uL | LAB | | | Counted | [address], | | | | | | [place] [address] | | | | + + + + + + | Hemoglobin | 13.9Comment: Testing | 13.2 - 17.0 | EXTERNAL | | | | performed at [facility], [address] | g/dL | LAB | | | | [address], | | | | | | [place] [address] | | | | + + + + + + | Hematocrit, | 41.3Comment: Testing | 39.0 - 50.0 % | EXTERNAL | | | POC | performed at [facility], [address] | | LAB | | | [address], | | | | | | [place] [address] | | | | + + + + + + | MCV | 92.2Comment: Testing | 80.0 - 100.0 fl | EXTERNAL | | | | performed at [facility], [address] | | LAB | | | | [address], | | | | | | [place] [address] | | | | + + + + + + | MCH | 31.1Comment: Testing | 27.0 - 34.0 pg | EXTERNAL | | | | performed at [facility], [address] | | LAB | | | | [address], | | | | | | [place] [address] | | | | + + + + + + | MCHC | 33.7Comment: Testing | 32.0 - 35.5 | EXTERNAL | | | | performed at [facility], [address] | g/dL | LAB | | | | [address], | | | | | | [place] [address] | | | | + + + + + + | RDW-CV | 41.6Comment: Testing | 37 - 53 fl | EXTERNAL | | | | performed at [facility], [address] | | LAB | | | | [address], | | | | | | [place] [address] | | | | + + + + + + | Platelet | 159Comment: Testing | 150 - 400 K/uL | EXTERNAL | | | Count | performed at [facility], [address] | | LAB | | | Plasma | [address], | | | | | | [place] [address] | | | | + + + + + + | MPV | 9.8Comment: Testing | fl | EXTERNAL | | | | performed at [facility], [address] | | LAB | | | | [address], | | | | | | [place] [address] | | | | + + + + + + | Differentia | AUTOMATEDComment: | | EXTERNAL | | | l Type | Testing performed at | | LAB | | | | [facility], [address] | | | | | | [place] | | | | | | [address] | | | | + + + + + + | % Segmented | 62.0Comment: Testing | % | EXTERNAL | | | | performed at [facility], [address] | | LAB | | | Neutrophils | [address], | | | | | | [place] [address] | | | | + + + + + + | % | 25.6Comment: Testing | % | EXTERNAL | | | Lymphocytes | performed at [facility], [address] | | LAB | | | | [address], | | | | | | [place] [address] | | | | + + + + + + | % Monocytes | 11.2Comment: Testing | % | EXTERNAL | | | | performed at [facility], [address] | | LAB | | | | [address], | | | | | | [place] [address] | | | | + + + + + + | % | 1.0Comment: Testing | % | EXTERNAL | | | Eosinophils | performed at [facility], [address] | | LAB | | | | [address], | | | | | | [place] [address] | | | | + + + + + + | % Basophils | 0.2Comment: Testing | % | EXTERNAL | | | | performed at [facility], [address] | | LAB | | | | [address], | | | | | | [place] [address] | | | | + + + + + + | Absolute | 3.8Comment: Testing | 1.9 - 7.4 K/uL | EXTERNAL | | | Segmented | performed at [facility], [address] | | LAB | | | Neutrophils | [address], | | | | | | [place] [address] | | | | + + + + + + | Absolute | 1.6Comment: Testing | 1.0 - 3.9 K/uL | EXTERNAL | | | Lymphocytes | performed at [facility], [address] | | LAB | | | | [address], | | | | | | [place] [address] | | | | + + + + + + | Absolute | 0.7Comment: Testing | 0 - 0.8 K/uL | EXTERNAL | | | Monocytes | performed at [facility], [address] | | LAB | | | | [address], | | | | | | [place] [address] | | | | + + + + + + | Absolute | 0.1Comment: Testing | 0 - 0.5 K/uL | EXTERNAL | | | Eosinophils | performed at [facility], [address] | | LAB | | | | [address], | | | | | | [place] [address] | | | | + + + + + + | Absolute | 0.0Comment: Testing | 0 - 0.1 K/uL | EXTERNAL | | | Basophils | performed at [facility], [address] | | LAB | | | | [address], | | | | | | [place] [address] | | | | + + + + + + + + | Specimen | + + | Blood specimen | | (specimen) | + + + +---------+ + + | Performing | Address | City/State/Zipcode | Phone Number | | Organization | | | | + +---------+ + + | EXTERNAL LAB | | | | + +---------+ + + CK Total (07/02/2014 4:25 AM PST) + + + + + + | Component | Value | Ref Range | Performed | Pathologist | | | | | At | Signature | + + + + + + | CK, Total | 202Comment: Testing | 55 - 400 U/L | EXTERNAL | | | | performed at [facility];[address] | | LAB | | | | [address];[place], [place] | | | | | | [address] | | | | + + + + + + + + | Specimen | + + | Blood specimen | | (specimen) | + + + +---------+ + + | Performing | Address | City/State/Zipcode | Phone Number | | Organization | | | | + +---------+ + + | EXTERNAL LAB | | | | + +---------+ + + ECHO Complete w Contrast (06/30/2014 10:31 AM PST) + + | Specimen | + + | | + + + + + | Impressions | Performed At | + + + | 1. Overall left ventricular systolic function is normal with, an EF | | | between 55 - 60 %. 2. posterior - mildly hypokinetic; 3. basal | | | inferolateral - moderately hypokinetic; 4. There is mild aortic | | | regurgitation. 5. There is no pericardial effusion. | | + + + + + + | Narrative | Performed At | + + + | Patient Name: MARY EMERSON Date of : 1950 | | | Performing Physician: Reji Joy MD | | | | | | INDICATIONS s/p heart cath eval. CONCLUSIONS | | | 1. Overall left ventricular systolic function is normal | | | with, an EF between 55 - 60 %. 2. posterior - mildly hypokinetic; 3. | | | basal inferolateral - moderately hypokinetic; 4. There is mild | | | aortic regurgitation. 5. There is no pericardial effusion. | | | FINDINGS -------- ECG rhythm: Sinus rhythm. Study: A 2-dimensional | | | transthoracic echocardiogram with m-mode, spectral and color flow | | | Doppler was perfomed. Study: This was a technically adequate study. | | | Left Ventricle: Overall left ventricular systolic function is normal | | | with, an EF between 55 - 60 %. Left Ventricle: Left Ventricle | | | ejection fraction by m-mode measures 54%. Left Ventricle: The left | | | ventricle cavity size is normal. Left Ventricle: Left ventricular | | | wall thickness is normal. Left Ventricle: The diastolic filling | | | pattern is normal for the age of the patient. Left Ventricle: The | | | following regional wall motion abnormalities include: Left Ventricle: | | | posterior - mildly hypokinetic; Left Ventricle: basal inferolateral | | | - moderately hypokinetic; Left Ventricle: The remaining left | | | ventricular segments contract normally. Right Ventricle: The right | | | ventricle is mildly enlarged measuring between 3.4 - 3.7 cm. Right | | | Ventricle: The right ventricular systolic function is normal. Left | | | Atrium: The left atrium is mildly dilated Left Atrium: , and the LA | | | measures 4.3cm. Right Atrium: The right atrial size is normal Right | | | Atrium: , and the RA measures 4.8cm. Aortic Valve: The aortic valve | | | is trileaflet and appears structurally normal. Aortic Valve: There is | | | mild aortic regurgitation. Mitral Valve: The mitral valve is normal. | | | Mitral Valve: There is trace mitral regurgitation. Mitral Valve: | | | Mild mitral annular calcification present. Tricuspid Valve: The | | | tricuspid valve appears structurally normal. Tricuspid Valve: No | | | regurgitation noted Pulmonic Valve: The pulmonic valve was not well | | | visualized. Pericardium: There is no pericardial effusion. | | | Pericardium: No pleural effusion seen. IVC/Hepatic Veins: The IVC is | | | normal size (1.5-2.5cm) and collapses >50% with sniff, consistent with | | | central venous pressures of 5-10mmHg. Mass: No mass visualized | | | Thrombus: No clot visualized Thrombus: No vegetation visualized. | | | Contrast: Poor visualization. Definity was used to opacify the left | | | ventricular chamber and improve delineation of the endocardial border. | | | MEASUREMENTS LA Major: 5.83 cm LVOT Diam: | | | 2.47 cm RA Major: 4.84 cm RVIDd: 3.44 cm LAESV(A-L): 68.65 | | | ml LAESV Index (A-L): 25.81 ml/m2 LAAs A2C: 23.49 cm2 LAESV | | | A-L A2C: 76.86 ml LALs A2C: 6.09 cm LAAs A4C: 19.61 cm2 | | | LAESV A-L A4C: 57.32 ml LALs A4C: 5.69 cm Ao Diam: 3.55 cm | | | AV Cusp: 1.79 cm LA Diam: 4.33 cm LA/Ao: 1.21 %FS: | | | 28.24 % EDV(Teich): 124.65 ml EF(Teich): 54.26 % ESV(Teich): | | | 57.01 ml IVSd: 0.89 cm IVSs: 1.28 cm LVIDd: 5.11 cm | | | LVIDs: 3.67 cm LVPWd: 0.85 cm LVPWs: 1.40 cm SV(Teich): | | | 67.63 ml D-E Excursion: 1.52 cm E-F Parker: 0.06 m/s EPSS: | | | 0.35 cm IVC diameter: 2.13 cm IVC collapse: 0.62 cm IVC % | | | collapse: 68.59 % HR: 69.08 BPM AV maxP.29 mmHg AV | | | meanP.01 mmHg AV Vmax: 1.25 m/s AV Vmean: 0.97 m/s AV | | | VTI: 27.39 cm MICHAEL Vmax: 4.65 cm2 MICHAEL (VTI): 4.06 cm2 LVCI | | | Dopp: 2.96 l/minm2 LVCO Dopp: 7.88 l/min HR: 70.77 BPM | | | LVOT maxP.93 mmHg LVOT meanP.72 mmHg LVSI Dopp: | | | 41.88 ml/m2 LVSV Dopp: 111.42 ml LVOT Vmax: 1.21 m/s LVOT | | | Vmean: 0.76 m/s LVOT VTI: 23.25 cm MCO: 415.22 ms MR | | | maxP.51 mmHg MR meanP.21 mmHg MR Vmax: 1.90 m/s | | | MR Vmean: 1.55 m/s MR VTI: 59.36 cm MV A Ghanshyam: 0.53 m/s MV | | | DecT: 153.17 ms MV E Ghanshyam: 0.80 m/s MV E/A Ratio: 1.49 MV | | | PHT: 48.51 ms MVA By PHT: 4.53 cm2 MV A Dur: 100.34 ms | | | Septal e': 0.09 m/s Septal E/e': 8.38 Lateral e': 0.10 m/s | | | Lateral E/e': 7.80 P Vein A: 0.20 m/s P Vein A Dur: 107.26 | | | ms P Vein D: 0.46 m/s P Vein S/D Ratio: 0.60 P Vein S: | | | 0.28 m/s HR: 69.91 BPM PV maxP.40 mmHg PV meanP.23 | | | mmHg PV Vmax: 1.04 m/s PV Vmean: 0.88 m/s PV VTI: 23.33 | | | cm TV A Ghanshyam: 0.27 m/s TV Dec Parker: 1.83 m/s2 TV Dec Time: | | | 212.74 ms TV E Ghanshyam: 0.39 m/s TV E/A Ratio: 1.42 | | | Assistant Corporation Counsel: JASIEL Authenticated by: Reji Joy MD Report | | | Date/Time: 06-30-2014 19:31:49 | | + + + + + | Procedure Note | + + | Jeff Gamble Conversion - 01/09/2019 7:05 AM PDT Patient Name: Sanna EMERSON | | : 1950 Performing Physician: Reji Joy | | INDICATIONS s | | /p heart cath eval. CONCLUSIONS 1. Overall left ventricular systolic function | | is normal with, an EF between 55 - 60 %.2. posterior - mildly hypokinetic;3. basal | | inferolateral - moderately hypokinetic;4. There is mild aortic regurgitation.5. There is | | no pericardial effusion. FINDINGS--------ECG rhythm: Sinus rhythm.Study: A | | 2-dimensional transthoracic echocardiogram with m-mode, spectral and color flow Doppler | | was perfomed.Study: This was a technically adequate study.Left Ventricle: Overall left | | ventricular systolic function is normal with, an EF between 55 - 60 %.Left Ventricle: | | Left Ventricle ejection fraction by m-mode measures 54%.Left Ventricle: The left | | ventricle cavity size is normal.Left Ventricle: Left ventricular wall thickness is | | normal.Left Ventricle: The diastolic filling pattern is normal for the age of the | | patient.Left Ventricle: The following regional wall motion abnormalities include:Left | | Ventricle: posterior - mildly hypokinetic;Left Ventricle: basal inferolateral - | | moderately hypokinetic;Left Ventricle: The remaining left ventricular segments contract | | normally.Right Ventricle: The right ventricle is mildly enlarged measuring between 3.4 - | | 3.7 cm.Right Ventricle: The right ventricular systolic function is normal.Left Atrium: | | The left atrium is mildly dilatedLeft Atrium: , and the LA measures 4.3cm.Right Atrium: | | The right atrial size is normalRight Atrium: , and the RA measures 4.8cm.Aortic Valve: | | The aortic valve is trileaflet and appears structurally normal.Aortic Valve: There is | | mild aortic regurgitation.Mitral Valve: The mitral valve is normal.Mitral Valve: There | | is trace mitral regurgitation.Mitral Valve: Mild mitral annular calcification | | present.Tricuspid Valve: The tricuspid valve appears structurally normal.Tricuspid | | Valve: No regurgitation notedPulmonic Valve: The pulmonic valve was not well | | visualized.Pericardium: There is no pericardial effusion.Pericardium: No pleural | | effusion seen.IVC/Hepatic Veins: The IVC is normal size (1.5-2.5cm) and collapses >50% | | with sniff, consistent with central venous pressures of 5-10mmHg.Mass: No mass | | visualizedThrombus: No clot visualizedThrombus: No vegetation visualized.Contrast: Poor | | visualization. Definity was used to opacify the left ventricular chamber and improve | | delineation of the endocardial border. MEASUREMENTS LA Major: 5.83 cmLVOT | | Diam: 2.47 cmRA Major: 4.84 cmRVIDd: 3.44 cmLAESV(A-L): 68.65 mlLAESV Index | | (A-L): 25.81 ml/m2LAAs A2C: 23.49 [id number] A-L A2C: 76.86 mlLALs A2C: 6.09 | | cmLAAs A4C: 19.61 [id number] A-L A4C: 57.32 mlLALs A4C: 5.69 cmAo Diam: 3.55 cmAV | | Cusp: 1.79 cmLA Diam: 4.33 cmLA/Ao: 1.21%FS: 28.24 %EDV(Teich): 124.65 | | mlEF(Teich): 54.26 %ESV(Teich): 57.01 mlIVSd: 0.89 cmIVSs: 1.28 cmLVIDd: 5.11 | | cmLVIDs: 3.67 cmLVPWd: 0.85 cmLVPWs: 1.40 cmSV(Teich): 67.63 mlD-E Excursion: | | 1.52 cmE-F Parker: 0.06 m/sEPSS: 0.35 cmIVC diameter: 2.13 cmIVC collapse: 0.62 | | cmIVC % collapse: 68.59 %HR: 69.08 BPMAV maxP.29 mmHgAV meanP.01 mmHgAV | | Vmax: 1.25 m/Nick Vmean: 0.97 m/Nick VTI: 27.39 cmAVA Vmax: 4.65 cm2AVA (VTI): | | 4.06 [id number] Dopp: 2.96 l/ozcd5ZEHT Dopp: 7.88 l/minHR: 70.77 BPMLVOT maxPG: | | 5.93 mmHgLVOT meanP.72 mmHgLVSI Dopp: 41.88 ml/m2LVSV Dopp: 111.42 mlLVOT | | Vmax: 1.21 m/sLVOT Vmean: 0.76 m/sLVOT VTI: 23.25 cmMCO: 415.22 msMR maxPG: | | 14.51 mmHgMR meanP.21 mmHgMR Vmax: 1.90 m/sMR Vmean: 1.55 m/sMR VTI: 59.36 | | cmMV A Ghanshyam: 0.53 m/sMV DecT: 153.17 msMV E Ghanshyam: 0.80 m/sMV E/A Ratio: 1.49MV | | PHT: 48.51 msMVA By PHT: 4.53 cm2MV A Dur: 100.34 msSeptal e': 0.09 m/sSeptal | | E/e': 8.38Lateral e': 0.10 m/sLateral E/e': 7.80P Vein A: 0.20 m/sP Vein A Dur: | | 107.26 msP Vein D: 0.46 m/sP Vein S/D Ratio: 0.60P Vein S: 0.28 m/sHR: 69.91 | | BPMPV maxP.40 mmHgPV meanP.23 mmHgPV Vmax: 1.04 m/sPV Vmean: 0.88 m/sPV | | VTI: 23.33 cmTV A Ghanshyam: 0.27 m/sTV Dec Parker: 1.83 m/s2TV Dec Time: 212.74 msTV E | | Ghanshyam: 0.39 m/sTV E/A Ratio: 1.42 Assistant Corporation Counsel: JASIELAuthenticated by: Reji Joy | | MDReport Date/Time: 06-30-2014 19:31:49 IMPRESSION: 1. Overall left ventricular systolic | | function is normal with, an EF between 55 - 60 %.2. posterior - mildly hypokinetic;3. | | basal inferolateral - moderately hypokinetic;4. There is mild aortic regurgitation.5. | | There is no pericardial effusion. | | | |MEASUREMENTS | | | |LA Major: 5.83 cm | |LVOT Diam: 2.47 cm | |RA Major: 4.84 cm | |RVIDd: 3.44 cm | |LAESV(A-L): 68.65 ml | |LAESV Index (A-L): 25.81 ml/m2 | |LAAs A2C: 23.49 cm2 | |LAESV A-L A2C: 76.86 ml | |LALs A2C: 6.09 cm | |LAAs A4C: 19.61 cm2 | |LAESV A-L A4C: 57.32 ml | |LALs A4C: 5.69 cm | |Ao Diam: 3.55 cm | |AV Cusp: 1.79 cm | |LA Diam: 4.33 cm | |LA/Ao: 1.21 | |%FS: 28.24 % | |EDV(Teich): 124.65 ml | |EF(Teich): 54.26 % | |ESV(Teich): 57.01 ml | |IVSd: 0.89 cm | |IVSs: 1.28 cm | |LVIDd: 5.11 cm | |LVIDs: 3.67 cm | |LVPWd: 0.85 cm | |LVPWs: 1.40 cm | |SV(Teich): 67.63 ml | |D-E Excursion: 1.52 cm | |E-F Parker: 0.06 m/s | |EPSS: 0.35 cm | |IVC diameter: 2.13 cm | |IVC collapse: 0.62 cm | |IVC % collapse: 68.59 % | |HR: 69.08 BPM | |AV maxP.29 mmHg | |AV meanP.01 mmHg | |AV Vmax: 1.25 m/s | |AV Vmean: 0.97 m/s | |AV VTI: 27.39 cm | |MICHAEL Vmax: 4.65 cm2 | |MICHAEL (VTI): 4.06 cm2 | |LVCI Dopp: 2.96 l/minm2 | |LVCO Dopp: 7.88 l/min | |HR: 70.77 BPM | |LVOT maxP.93 mmHg | |LVOT meanP.72 mmHg | |LVSI Dopp: 41.88 ml/m2 | |LVSV Dopp: 111.42 ml | |LVOT Vmax: 1.21 m/s | |LVOT Vmean: 0.76 m/s | |LVOT VTI: 23.25 cm | |MCO: 415.22 ms | |MR maxP.51 mmHg | |MR meanP.21 mmHg | |MR Vmax: 1.90 m/s | |MR Vmean: 1.55 m/s | |MR VTI: 59.36 cm | |MV A Ghanshyam: 0.53 m/s | |MV DecT: 153.17 ms | |MV E Ghanshyam: 0.80 m/s | |MV E/A Ratio: 1.49 | |MV PHT: 48.51 ms | |MVA By PHT: 4.53 cm2 | |MV A Dur: 100.34 ms | |Septal e': 0.09 m/s | |Septal E/e': 8.38 | |Lateral e': 0.10 m/s | |Lateral E/e': 7.80 | |P Vein A: 0.20 m/s | |P Vein A Dur: 107.26 ms | |P Vein D: 0.46 m/s | |P Vein S/D Ratio: 0.60 | |P Vein S: 0.28 m/s | |HR: 69.91 BPM | |PV maxP.40 mmHg | |PV meanP.23 mmHg | |PV Vmax: 1.04 m/s | |PV Vmean: 0.88 m/s | |PV VTI: 23.33 cm | |TV A Ghanshyam: 0.27 m/s | |TV Dec Parker: 1.83 m/s2 | |TV Dec Time: 212.74 ms | |TV E Ghanshyam: 0.39 m/s | |TV E/A Ratio: 1.42 | | | |Assistant Corporation Counsel: JASIEL | |Authenticated by: Reji Joy MD | |Report Date/Time: 06-30-2014 19:31:49 | | | |IMPRESSION: | |1. Overall left ventricular systolic function is normal with, an EF between 55 - 60 %. | |2. posterior - mildly hypokinetic; | |3. basal inferolateral - moderately hypokinetic; | |4. There is mild aortic regurgitation. | |5. There is no pericardial effusion. | + + ECG 12 lead (06/30/2014 5:35 AM PST) + + + + + + | Component | Value | Ref Range | Performed | Pathologist | | | | | At | Signature | + + + + + + | DIAGNOSIS: | Normal sinus | | EXTERNAL | | | | rhythmInferior infarct | | LAB | | | | (cited on or before | | | | | | 29-JUN-2014) ACUTE | | | | | | MT / STEMI Consider | | | | | | right ventricular | | | | | | involvement in acute | | | | | | inferior infarctAbnormal | | | | | | ECGWhen compared with | | | | | | ECG of 29-JUN-2014 | | | | | | 17:04,No significant | | | | | | change was | | | | | | foundConfirmed by NEIL, | | | | | | PB ([id number]) on 06/30/2014 | | | | | | 7:39:26 PM | | | | + + + + + + + + | Specimen | + + | | + + + + + | Narrative | Performed At | + + + | Historically converted procedure from [facility] | EXTERNAL LAB | + + + + +---------+ + + | Performing | Address | City/State/Zipcode | Phone Number | | Organization | | | | + +---------+ + + | EXTERNAL LAB | | | | + +---------+ + + Hemoglobin and Hematocrit (06/30/2014 4:13 AM PST) + + + + + + | Component | Value | Ref Range | Performed | Pathologist | | | | | At | Signature | + + + + + + | Hemoglobin | 14.6Comment: Testing | 13.2 - 17.0 | EXTERNAL | | | | performed at [facility];[address] | g/dL | LAB | | | | [address];[place] | | | | | | [address] | | | | + + + + + + | Hematocrit, | 42.4Comment: Testing | 39.0 - 50.0 % | EXTERNAL | | | POC | performed at [facility];[address] | | LAB | | | | [address];[place], [place] | | | | | | [address] | | | | + + + + + + + + | Specimen | + + | | + + + +---------+ + + | Performing | Address | City/State/Zipcode | Phone Number | | Organization | | | | + +---------+ + + | EXTERNAL LAB | | | | + +---------+ + + CK Total (06/30/2014 4:13 AM PST) + + + + + + | Component | Value | Ref Range | Performed | Pathologist | | | | | At | Signature | + + + + + + | CK, Total | 1509 (H)Comment: Testing | 55 - 400 U/L | EXTERNAL | | | | performed at [facility];[address] | | LAB | | | | [address];[place] | | | | | | [address] | | | | + + + + + + + + | Specimen | + + | | + + + +---------+ + + | Performing | Address | City/State/Zipcode | Phone Number | | Organization | | | | + +---------+ + + | EXTERNAL LAB | | | | + +---------+ + + Basic Metabolic Panel (06/30/2014 4:13 AM PST) + + + + + + | Component | Value | Ref Range | Performed | Pathologist | | | | | At | Signature | + + + + + + | Na | 137Comment: Testing | 135 - 143 | EXTERNAL | | | | performed at [facility];[address] | mmol/L | LAB | | | | [address];[place] | | | | | | [address] | | | | + + + + + + | K | 4.0Comment: Testing | 3.5 - 4.9 | EXTERNAL | | | | performed at [facility];[address] | mmol/L | LAB | | | | [address];[place] | | | | | | [address] | | | | + + + + + + | Cl | 104Comment: Testing | 99 - 109 mmol/L | EXTERNAL | | | | performed at [facility];[address] | | LAB | | | | [address];[place] | | | | | | [address] | | | | + + + + + + | CO2 | 26Comment: Testing | 23 - 32 mmol/L | EXTERNAL | | | | performed at [facility];[address] | | LAB | | | | [address];[place] | | | | | | [address] | | | | + + + + + + | Anion Gap | 11Comment: Testing | 5 - 20 mmol/L | EXTERNAL | | | | performed at [facility];[address] | | LAB | | | | [address];[place] | | | | | | [address] | | | | + + + + + + | Glucose, | 121 (H)Comment: Testing | 65 - 99 mg/dL | EXTERNAL | | | Fasting | performed at [facility];[address] | | LAB | | | | [address];[place] | | | | | | [address] | | | | + + + + + + | BUN | 11Comment: Testing | 8 - 25 mg/dL | EXTERNAL | | | | performed at [facility];[address] | | LAB | | | | [address];[place] | | | | | | [address] | | | | + + + + + + | Creatinine | 0.86Comment: Testing | 0.70 - 1.30 | EXTERNAL | | | | performed at [facility];[address] | mg/dL | LAB | | | | [address];[place] | | | | | | [address] | | | | + + + + + + | BUN/Creatin | 13Comment: Testing | | EXTERNAL | | | ine Ratio | performed at [facility];[address] | | LAB | | | | [address];[place] | | | | | | [address] | | | | + + + + + + | Calcium | 8.2 (L)Comment: NOTE NEW | 8.5 - 10.5 | EXTERNAL | | | | REFERENCE RANGETesting | mg/dL | LAB | | | | performed at [facility];[address] | | | | | | [facility];[place], [place] | | | | | | [address] | | | | + + + + + + | Estimated | >60Comment: GFR <60: | mL/min/1.73m2 | EXTERNAL | | | GFR | CHRONIC KIDNEY DISEASE, | | LAB | | | | IF FOUND OVER A 3 MONTH | | | | | | PERIOD.GFR <15: KIDNEY | | | | | | FAILURE.FOR | | | | | | AMERICANS, MULTIPLY THE | | | | | | CALCULATED GFR BY | | | | | | 1.210.Testing performed | | | | | | at [facility];[address] [facility] | | | | | | [address];[place] [address] | | | | + + + + + + + + | Specimen | + + | | + + + +---------+ + + | Performing | Address | City/State/Zipcode | Phone Number | | Organization | | | | + +---------+ + + | EXTERNAL LAB | | | | + +---------+ + + ECG 12 lead (06/29/2014 5:04 PM PST) + + + + + + | Component | Value | Ref Range | Performed | Pathologist | | | | | At | Signature | + + + + + + | DIAGNOSIS: | Normal sinus | | EXTERNAL | | | | rhythmInferior infarct , | | LAB | | | | possibly acute | | | | | | ACUTE MT / STEMI | | | | | | Consider right | | | | | | ventricular involvement | | | | | | in acute inferior | | | | | | infarctAbnormal ECGNo | | | | | | previous ECGs | | | | | | availableConfirmed by | | | | | | PB TREJO ([id number]) on | | | | | | 06/29/2014 9:24:55 PM | | | | + + + + + + + + | Specimen | + + | | + + + + + | Narrative | Performed At | + + + | Historically converted procedure from [facility] environment | EXTERNAL LAB | + + + + +---------+ + + | Performing | Address | City/State/Zipcode | Phone Number | | Organization | | | | + +---------+ + + | EXTERNAL LAB | | | | + +---------+ + + CV CARDIAC PROCEDURE (06/29/2014 4:25 PM PST) + + | Specimen | + + | | + + + + + | Narrative | Performed At | + + + | | | | | | | DATE OF PROCEDURE June 29, 2014 PROCEDURES 1. Femoral artery | | | approach. 2. Selective coronary angiography. 3. Left heart | | | catheterization with left ventriculogram. 4. Primary stetning of | | | proximal RCA with 4 x 16 mm Promus Premier drug-eluting stent. | | | BRIEF HISTORY Mr. Emerson is a 63-year-old male with no | | | previously documented cardiac history who presented with substernal | | | chest pain and had ST elevation in the inferior wall. He was taken to | | | the catheterization lab on an urgent basis. For details regarding | | | his presentation, kindly refer to my H and P. TECHNIQUE The | | | patient was brought to the catheterization lab in the fasting state | | | and was prepped and draped in the usual sterile fashion. Arterial | | | access was obtained via right femoral artery and a 6-Dominican arterial | | | sheath was placed. A 6-Dominican JL4 catheter was then advanced under | | | fluoroscopic guidance and engaged with the ostium of the left main | | | coronary artery, and multiple projections of the left coronary | | | systems were obtained with the use of contrast injections. The | | | catheter was then exchanged to a 6-Dominican JR4 catheter, which was | | | advanced under fluoroscopic guidance and engaged with the ostium of | | | the right coronary artery, and multiple projections of the right | | | coronary artery were obtained with the use of contrast injections. | | | The catheter was then exchanged to a 6-Dominican pigtail catheter which | | | was advanced into the left ventricle, and projections of left | | | ventricular function in the LUNDY view were done with contrast | | | injections. FINDINGS CONTRAST USED 105 mL. CORONARY | | | ANGIOGRAPHY The coronary system was right dominant. 1. Left main | | | bifurcated into LAD and left circumflex. Left main was free of | | | disease. 2. Left anterior descending artery was a large vessel with | | | no atherosclerosis. The diagonal branches were free of disease as | | | well. 3. Left circumflex coronary artery and the marginal branches | | | were free of disease. 4. The right coronary artery was a very large | | | vessel that had subtotal occlusion proximally with evidence of formed | | | clot. Rest of the vessel appears to be free of disease. LEFT | | | VENTRICULOGRAM An LUNDY view at the end of the procedure suggested mild | | | hypokinesis of the inferior basal wall. Ejection fraction was 55%. | | | CORONARY INTERVENTION The patient has inferior posterior MT with | | | subtotal occlusion of the proximal RCA. Using the JL4 guider catheter | | | which was already chosen to do angiography, and after heparin was | | | given, a BMW guidewire was threaded into the RCA and placed distally. | | | Further heparin injections were given. A 4 x 16 mm Promus Premier | | | drug-eluting stent was then advanced and positioned across the RCA | | | lesion and deployed with 12 atmospheres. Projections of the vessel | | | showed excellent results. ESTIMATED BLOOD LOSS Less than 50 mL. | | | CONCLUSION/RECOMMENDATIONS 1. Acute inferior myocardial | | | infarction. 2. Preserved overall left ventricular systolic function. | | | 3. One-vessel coronary artery disease 4. Status post primary | | | stenting of proximal right coronary artery with 4 x 16 mm Promus | | | Premier drug-eluting stent. 5. The patient will be admitted to | | | cardiac unit for further aggressive medical therapy. | | | Read by REJI JOY MD 06/30/2014 06:57 A | | + + + + + | Procedure Note | + + | Jeff Gamble - 01/14/2019 2:43 PM PDT | | | | DATE OF PROCEDURE | | June 29, 2014 | | | | PROCEDURES | | 1. Femoral artery approach. | | 2. Selective coronary angiography. | | 3. Left heart catheterization with left ventriculogram. | | 4. Primary stetning of proximal RCA with 4 x 16 mm Promus Premier | | drug-eluting stent. | | | | BRIEF HISTORY | | Mr. Emerson is a 63-year-old male with no previously documented | | cardiac history who presented with substernal chest pain and had ST | | elevation in the inferior wall. He was taken to the catheterization lab on | | an urgent basis. For details regarding his presentation, kindly refer to | | my H and P. | | | | TECHNIQUE | | The patient was brought to the catheterization lab in the fasting state | | and was prepped and draped in the usual sterile fashion. Arterial access | | was obtained via right femoral artery and a 6-Dominican arterial sheath was | | placed. A 6-Dominican JL4 catheter was then advanced under fluoroscopic | | guidance and engaged with the ostium of the left main coronary artery, and | | multiple projections of the left coronary systems were obtained with the | | use of contrast injections. The catheter was then exchanged to a 6-Dominican | | JR4 catheter, which was advanced under fluoroscopic guidance and engaged | | with the ostium of the right coronary artery, and multiple projections of | | the right coronary artery were obtained with the use of contrast | | injections. The catheter was then exchanged to a 6-Dominican pigtail catheter | | which was advanced into the left ventricle, and projections of left | | ventricular function in the LUNDY view were done with contrast injections. | | | | FINDINGS | | | | CONTRAST USED | | 105 mL. | | | | CORONARY ANGIOGRAPHY | | The coronary system was right dominant. | | 1. Left main bifurcated into LAD and left circumflex. Left main was free | | of disease. | | 2. Left anterior descending artery was a large vessel with no | | atherosclerosis. The diagonal branches were free of disease as well. | | 3. Left circumflex coronary artery and the marginal branches were free of | | disease. | | 4. The right coronary artery was a very large vessel that had subtotal | | occlusion proximally with evidence of formed clot. Rest of the vessel | | appears to be free of disease. | | | | LEFT VENTRICULOGRAM | | An LUNDY view at the end of the procedure suggested mild hypokinesis of the | | inferior basal wall. Ejection fraction was 55%. | | | | CORONARY INTERVENTION | | The patient has inferior posterior MT with subtotal occlusion of the | | proximal RCA. Using the JL4 guider catheter which was already chosen to do | | angiography, and after heparin was given, a BMW guidewire was threaded | | into the RCA and placed distally. Further heparin injections were given. A | | 4 x 16 mm Promus Premier drug-eluting stent was then advanced and | | positioned across the RCA lesion and deployed with 12 atmospheres. | | Projections of the vessel showed excellent results. | | | | ESTIMATED BLOOD LOSS | | Less than 50 mL. | | | | CONCLUSION/RECOMMENDATIONS | | 1. Acute inferior myocardial infarction. | | 2. Preserved overall left ventricular systolic function. | | 3. One-vessel coronary artery disease | | 4. Status post primary stenting of proximal right coronary artery with 4 x | | 16 mm Promus Premier drug-eluting stent. | | 5. The patient will be admitted to cardiac unit for further aggressive | | medical therapy. | | | | | | | | | | | | Read by REJI JOY MD 06/30/2014 06:57 A | | | | | + + CV CARDIAC PROCEDURE (06/29/2014 4:25 PM PST) + + | Specimen | + + | | + + + + + | Narrative | Performed At | + + + | | | | | | | DATE OF PROCEDURE June 29, 2014 PROCEDURES 1. Femoral artery | | | approach. 2. Selective coronary angiography. 3. Left heart | | | catheterization with left ventriculogram. 4. Primary stetning of | | | proximal RCA with 4 x 16 mm Promus Premier drug-eluting stent. | | | BRIEF HISTORY Mr. Emerson is a 63-year-old male with no | | | previously documented cardiac history who presented with substernal | | | chest pain and had ST elevation in the inferior wall. He was taken to | | | the catheterization lab on an urgent basis. For details regarding | | | his presentation, kindly refer to my H and P. TECHNIQUE The | | | patient was brought to the catheterization lab in the fasting state | | | and was prepped and draped in the usual sterile fashion. Arterial | | | access was obtained via right femoral artery and a 6-Dominican arterial | | | sheath was placed. A 6-Dominican JL4 catheter was then advanced under | | | fluoroscopic guidance and engaged with the ostium of the left main | | | coronary artery, and multiple projections of the left coronary | | | systems were obtained with the use of contrast injections. The | | | catheter was then exchanged to a 6-Dominican JR4 catheter, which was | | | advanced under fluoroscopic guidance and engaged with the ostium of | | | the right coronary artery, and multiple projections of the right | | | coronary artery were obtained with the use of contrast injections. | | | The catheter was then exchanged to a 6-Dominican pigtail catheter which | | | was advanced into the left ventricle, and projections of left | | | ventricular function in the LUNDY view were done with contrast | | | injections. FINDINGS CONTRAST USED 105 mL. CORONARY | | | ANGIOGRAPHY The coronary system was right dominant. 1. Left main | | | bifurcated into LAD and left circumflex. Left main was free of | | | disease. 2. Left anterior descending artery was a large vessel with | | | no atherosclerosis. The diagonal branches were free of disease as | | | well. 3. Left circumflex coronary artery and the marginal branches | | | were free of disease. 4. The right coronary artery was a very large | | | vessel that had subtotal occlusion proximally with evidence of formed | | | clot. Rest of the vessel appears to be free of disease. LEFT | | | VENTRICULOGRAM An LUNDY view at the end of the procedure suggested mild | | | hypokinesis of the inferior basal wall. Ejection fraction was 55%. | | | CORONARY INTERVENTION The patient has inferior posterior MT with | | | subtotal occlusion of the proximal RCA. Using the JL4 guider catheter | | | which was already chosen to do angiography, and after heparin was | | | given, a BMW guidewire was threaded into the RCA and placed distally. | | | Further heparin injections were given. A 4 x 16 mm Promus Premier | | | drug-eluting stent was then advanced and positioned across the RCA | | | lesion and deployed with 12 atmospheres. Projections of the vessel | | | showed excellent results. ESTIMATED BLOOD LOSS Less than 50 mL. | | | CONCLUSION/RECOMMENDATIONS 1. Acute inferior myocardial | | | infarction. 2. Preserved overall left ventricular systolic function. | | | 3. One-vessel coronary artery disease 4. Status post primary | | | stenting of proximal right coronary artery with 4 x 16 mm Promus | | | Premier drug-eluting stent. 5. The patient will be admitted to | | | cardiac unit for further aggressive medical therapy. | | | Read by REJI JOY MD 06/30/2014 06:57 A | | + + + + + | Procedure Note | + + | Jeff Gamble - 01/14/2019 2:43 PM PDT | | | | DATE OF PROCEDURE | | June 29, 2014 | | | | PROCEDURES | | 1. Femoral artery approach. | | 2. Selective coronary angiography. | | 3. Left heart catheterization with left ventriculogram. | | 4. Primary stetning of proximal RCA with 4 x 16 mm Promus Premier | | drug-eluting stent. | | | | BRIEF HISTORY | | Mr. Emerson is a 63-year-old male with no previously documented | | cardiac history who presented with substernal chest pain and had ST | | elevation in the inferior wall. He was taken to the catheterization lab on | | an urgent basis. For details regarding his presentation, kindly refer to | | my H and P. | | | | TECHNIQUE | | The patient was brought to the catheterization lab in the fasting state | | and was prepped and draped in the usual sterile fashion. Arterial access | | was obtained via right femoral artery and a 6-Dominican arterial sheath was | | placed. A 6-Dominican JL4 catheter was then advanced under fluoroscopic | | guidance and engaged with the ostium of the left main coronary artery, and | | multiple projections of the left coronary systems were obtained with the | | use of contrast injections. The catheter was then exchanged to a 6-Dominican | | JR4 catheter, which was advanced under fluoroscopic guidance and engaged | | with the ostium of the right coronary artery, and multiple projections of | | the right coronary artery were obtained with the use of contrast | | injections. The catheter was then exchanged to a 6-Dominican pigtail catheter | | which was advanced into the left ventricle, and projections of left | | ventricular function in the LUNDY view were done with contrast injections. | | | | FINDINGS | | | | CONTRAST USED | | 105 mL. | | | | CORONARY ANGIOGRAPHY | | The coronary system was right dominant. | | 1. Left main bifurcated into LAD and left circumflex. Left main was free | | of disease. | | 2. Left anterior descending artery was a large vessel with no | | atherosclerosis. The diagonal branches were free of disease as well. | | 3. Left circumflex coronary artery and the marginal branches were free of | | disease. | | 4. The right coronary artery was a very large vessel that had subtotal | | occlusion proximally with evidence of formed clot. Rest of the vessel | | appears to be free of disease. | | | | LEFT VENTRICULOGRAM | | An LUNDY view at the end of the procedure suggested mild hypokinesis of the | | inferior basal wall. Ejection fraction was 55%. | | | | CORONARY INTERVENTION | | The patient has inferior posterior MT with subtotal occlusion of the | | proximal RCA. Using the JL4 guider catheter which was already chosen to do | | angiography, and after heparin was given, a BMW guidewire was threaded | | into the RCA and placed distally. Further heparin injections were given. A | | 4 x 16 mm Promus Premier drug-eluting stent was then advanced and | | positioned across the RCA lesion and deployed with 12 atmospheres. | | Projections of the vessel showed excellent results. | | | | ESTIMATED BLOOD LOSS | | Less than 50 mL. | | | | CONCLUSION/RECOMMENDATIONS | | 1. Acute inferior myocardial infarction. | | 2. Preserved overall left ventricular systolic function. | | 3. One-vessel coronary artery disease | | 4. Status post primary stenting of proximal right coronary artery with 4 x | | 16 mm Promus Premier drug-eluting stent. | | 5. The patient will be admitted to cardiac unit for further aggressive | | medical therapy. | | | | | | | | | | | | Read by REJI JOY MD 06/30/2014 06:57 A | | | | | + + Activated clotting time (06/29/2014 4:12 PM PST) + + + + + + | Component | Value | Ref Range | Performed | Pathologist | | | | | At | Signature | + + + + + + | Activated | 182 (H)Comment: Testing | 74 - 137 | EXTERNAL | | | Clotting | performed at [facility];888 | seconds | LAB | | | time, POC | [address];[place], [place] | | | | | | [phone] | | | | + + + + + + + + | Specimen | + + | | + + + +---------+ + + | Performing | Address | City/State/Zipcode | Phone Number | | Organization | | | | + +---------+ + + | EXTERNAL LAB | | | | + +---------+ + + Activated clotting time (06/29/2014 4:02 PM PST) + + + + + + | Component | Value | Ref Range | Performed | Pathologist | | | | | At | Signature | + + + + + + | Activated | 155 (H)Comment: Testing | 74 - 137 | EXTERNAL | | | Clotting | performed at [facility];888 | seconds | LAB | | | time, POC | [address];[place] | | | | | | [address] | | | | + + + + + + + + | Specimen | + + | | + + + +---------+ + + | Performing | Address | City/State/Zipcode | Phone Number | | Organization | | | | + +---------+ + + | EXTERNAL LAB | | | | + +---------+ + + documented in this encounter Visit Diagnoses + + | Diagnosis | + + | Acute [place], inferior wall, initial episode of care (HCC) Acute myocardial infarction of | | other inferior wall, initial episode of care | + + | CAD (coronary artery disease), [place] coronary artery Coronary atherosclerosis of | | [place] coronary artery | + + documented in this encounter
--- OUTSIDE RECORDS SUMMARY | ~2019-10-09 | XMS | Encounter Summary ---
Demographics + + + | Address | [address] | | | [place] [address] | + + + | Home Phone | | + + + | Preferred Language | Unknown | + + + | Marital Status | | + + + | Hoahaoism Affiliation | Unknown | + + + | Race | Unknown | + + + | Ethnic Group | Unknown | + + + Author + + + | Author | [facility] | | | and [place] | + + + | Organization | [facility] | | | and [place] | + + + | Address | Unknown | + + + | Phone | Unavailable | + + + Care Team Providers + +------+ + | Care Production Crew Supervisor Name | Role | Phone | + +------+ + PCP | Unavailable | + +------+ + Encounter Details +--------+ + + + + | Date | Type | Department | Care Team | Description | +--------+ + + + + | 12/12/ | Orders Only | [facility] | Conversion | | | 2016 | | CONVERSION [address]P [address] | Transaction, | | | | | [address] | Provider Unknown | | | | | [place], [place] | [phone] | | | | | [address] | | | | | | [phone] | | | +--------+ + + + [...]
--- OUTSIDE RECORDS SUMMARY | ~2019-10-09 | XMS | Encounter Summary ---
Demographics + + + | Address | [address] | | | [place] [address] | + + + | Home Phone | | + + + | Preferred Language | Unknown | + + + | Marital Status | | + + + | Hinduism Affiliation | Unknown | + + + | Race | Unknown | + + + | Ethnic Group | Unknown | + + + Author + + + | Author | [facility] | | | and [place] | + + + | Organization | [facility] | | | and [place] | + + + | Address | Unknown | + + + | Phone | Unavailable | + + + Care Team Providers + +------+ + | Care Branch Administrator Name | Role | Phone | + [...] Provider Unknown | | | | | [place], [place] | [phone] | | | | | [address] | | | | | | [phone] | | | +--------+ + + + [...]
--- OUTSIDE RECORDS SUMMARY | ~2019-10-09 | XMS | Clinical Summary ---
Demographics + + + | Address | [address] | | | [place] [address] | + + + | Home Phone | | + + + | Preferred Language | Unknown | + + + | Marital Status | | + + + | Mosque Affiliation | Unknown | + + + | Race | Unknown | + + + | Ethnic Group | Unknown | + + + Author + + + | Author | [employer] [facility] (Historical as of | | | 01-10-19) | + + + | Organization | [facility] (Historical as of | | | 01-10-19) [...] Team Providers + +------+ + | Care Plant Tour Guide Name | Role | Phone | + [...] 06/29/2014 | + + + | Acute [place], inferior wall, initial episode of care | 06/29/2014 | + + + | CAD (coronary artery disease), [place] coronary artery | 06/29/2014 | + + [...] + + | MEDICARE | MEDICA | [id number] | | | [address] | | | [place] | | | | [place] [address] | | | IP-OP | | | | | + +--------+ +------+ + + | [facility] | [place] | [id number] | | | | | | | | | | | | | HEALTH | | | | | | | CARE - | | | | | | | AARP | | | | | + +--------+ +------+ + + | [place] | [employer] | [id number] | | [phone] [employer] [id number] | | ADMINISTRATION | [place] | | | [phone] | | | [address] | | | | [address] | | | [place] | | | | [phone] | | | ON | | | [...] | | al/Fam | | 1951 | [phone] | [place] | | | vad[place] | | | [phone] | [phone] | + +--------+ +--------+ + + | MARY EMERSON | Vetera | Self | [birth year] | Home: | [address] | | | ns | | 1951 | [phone] | [place] | | | Admini | | | [address] | [phone] | | | strati | | | | | | | on | | | | | + +--------+ +--------+ + +
--- OUTSIDE RECORDS SUMMARY | ~2019-10-09 | XMS | Clinical Summary ---
Demographics + + + | Address | [address] | | | [place] [address] | + + + | Home Phone | | + + + | Preferred Language | Unknown | + + + | Marital Status | | + + + | Alevism Affiliation | Unknown | + + + | Race | Unknown | + + + | Ethnic Group | Unknown | + + + Author + + + | Author | [facility] | | | and [place] | + + + | Organization | [facility] | | | and [place] | + + + | Address | Unknown | + + + | Phone | Unavailable | + + + Care Team Providers + +------+ + | Care Cognos Lead Name | Role | Phone | + [...] 06/29/2014 | + + + | Acute [place], inferior wall, initial episode of care | 06/29/2014 | + + + | CAD (coronary artery disease), [place] coronary artery | 06/29/2014 | + + [...]
--- OUTSIDE RECORDS SUMMARY | ~2019-10-09 | XMS | Encounter Summary ---
Demographics + + + | Address | [address] | | | [place] [address] | + + + | Home Phone | | + + + | Preferred Language | Unknown | + + + | Marital Status | | + + + | Mandaeism Affiliation | Unknown | + + + | Race | Unknown | + + + | Ethnic Group | Unknown | + + + Author + + + | Author | [facility] | | | and [place] | + + + | Organization | [facility] | | | and [place] | + + + | Address | Unknown | + + + | Phone | Unavailable | + + + Care Team Providers + +------+ + | Care Upholstery Handler Name | Role | Phone | + +------+ + PCP | Unavailable | + +------+ + Encounter Details +--------+ + + + + | Date | Type | Department | Care Team | Description | +--------+ + + + + | 07/02/ | Orders Only | [facility] | Reji Joy MD | | | 2015 | | CARDIOLOGY [place] | [address] | | | | | [address] | [place] [address] | | | | | [place], [place] | [phone] | | | | | [address] | | | | | | [phone] | | | +--------+ + + + [...]
--- OUTSIDE RECORDS SUMMARY | ~2019-10-09 | XMS | Encounter Summary ---
Demographics + + + | Address | [address] | | | [place] [address] | + + + | Home Phone | | + + + | Preferred Language | Unknown | + + + | Marital Status | | + + + | Hinduism Affiliation | Unknown | + + + | Race | Unknown | + + + | Ethnic Group | Unknown | + + + Author + + + | Author | [facility] | | | and [place] | + + + | Organization | [facility] | | | and [place] | + + + | Address | Unknown | + + + | Phone | Unavailable | + + + Care Team Providers + +------+ + | Care Flume Ride Operator Name | Role | Phone | [...] Provider Unknown | | | | | [place], [place] | [phone] | | | | | [address] | | | | | | [phone] | | | +--------+ + + + [...]
--- OUTSIDE RECORDS SUMMARY | ~2019-10-09 | XMS | Encounter Summary ---
Demographics + + + | Address | [address] | | | [place] [address] | + + + | Home Phone | | + + + | Preferred Language | Unknown | + + + | Marital Status | | + + + | Episcopalian Affiliation | Unknown | + + + | Race | Unknown | + + + | Ethnic Group | Unknown | + + + Author + + + | Author | [facility] | | | and [place] | + + + | Organization | [facility] | | | and [place] | + + + | Address | Unknown | + + + | Phone | Unavailable | + + + Care Team Providers + +------+ + | Care Lean Six Sigma Senior Specialist Name | Role | Phone | + +------+ + PCP | Unavailable | + +------+ + Encounter Details +--------+ + + + + | Date | Type | Department | Care Team | Description | +--------+ + + + + | 06/29/ | Hospital | [facility] | Reji Joy MD | Acute FL, inferior | | 2015 - | Encounter | [facility] | [address] | delma [address]ate | | | | INTENSIVE CARE UNIT | [place] [address] | episode of care | | 07/02/ | | [address] | [phone] | ([facility]LY [facility]); CAD (coronary | | 2014 | | [place], [place] | | artery disease), | | | | [address] | | [place] coronary | | | | [phone] | | artery | +--------+ + + [...] Summaries by Reji Joy MD at 07/02/14 7026 Author: Reji Joy MD Service: Cardiology Author Type: Physician Filed: 07/04/14 3667 Date of Service: 07/02/14 8571 Status: Signed Electric Motor Winder: Reji Joy MD (Physician) Related Notes: Original Note by Reji Joy MD (Physician) filed at 07/02/14 1201 [facility] Service: Cardiology Discharge Summary Date of [...] 63 y.o. male who Presented initially to [facility] with subsequent chest pain and was diagnosed with ST elevation in the inferior leads. He wa s transferred to [facility] for further care. 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 You may get the following medications from any pharmacy - aspirin 81 MG EC tablet - atorvastatin 80 MG tablet - clopidogrel 75 MG tablet - lisinopril 5 MG tablet - metoprolol 25 MG tablet Disposition: Home Condition: Stable. Code Status: Full code Follow up: Per Pt None Reji Joy MD [address] [place] [id number] In 10 days Discharge took 25 minutes, [...] 07/02/141225 Date of Service: 07/02/141225 Status: Signed Electric Motor Winder: Berkley Dillard RN (Registered Nurse) Discharge orders [...] 07/03/142015 Date of Service: 07/01/141825 Status: Signed Electric Motor Winder: Reji Joy MD (Physician) Related Notes: Original Note by Reji Joy MD (Physician) filed at 07/01/141828 [facility] Service: Cardiology/[facility] Progress Note RE: Mary Emerson : 1950 DATE OF SERVICE: 06/29/2014 PROVIDER:Reji Joy Pt is seen for F/U on: Acute FL SUBJECTIVE: Mary was ambulatory overnight and since [...] Case Management by MARCELINO Lara at 07/01/14 7688 Author: MARCELINO Lara Service: (none) Author Type: Foreign Languages Professor Filed: 07/01/14 1529 Date of Service: 07/01/14 1525 Status: Signed Electric Motor Winder: MARCELINO Lara (Foreign Languages Professor) 07/01/14 1522 Discharge Planning Evaluation Admitting Diagnosis acute FL Readmission No Living Arrangements Spouse/significant other;Children Support Systems Spouse/significant other;Children Type of Residence Private residence House type House-1 story Steps to enter 1 Bathrooms on 1st Floor 1-Full Independent with ADL's Yes Independent with Mobility Yes (does not own/use cane, walker, w/c) Mental Status Oriented Prior functional status Pt is indepdent in ADLs and IADLs (drives). Pt works in [employer] and appears fairly active Resources Financial concerns [...] Date of Service: 06/30/14 1007 Status: Signed Electric Motor Winder: Dasia Santillan RN (Registered Nurse) Spoke with [...] Reji Joy MD at 06/30/14904 Author: Reji oJy MD Service: Cardiology Author Type: Physician Filed: 07/03/141835 Date of Service: 06/30/14904 Status: Signed Electric Motor Winder: Reji Joy MD (Physician) Related Notes: Original Note by Reji Joy MD (Physician) filed at 06/30/141938 [facility] Service: Cardiology/[facility] Progress Note RE: Mary Emerson : 1950 DATE OF SERVICE: 06/29/2014 PROVIDER:Reji Joy Pt is seen for F/U on: Acute FL SUBJECTIVE: Mary did well after his event [...] and rule out mechanical complications of his FL . Reji Joy MD 06/30/2014 9:05 AM ani Frederick RPH - 06/29/2014 6:52 PM PST Progress Notes by Rani Frederick RPH at 06/29/141851 Author: Rani Frederick RPH Service: (none) Author Type: Pharmacist Filed: 06/29/141851 Date of Service: 06/29/141851 Status: Signed Electric Motor Winder: Rani Frederick RPH (Pharmacist) Clinical Pharmacy Note [...] EXTERNAL | | | | performed at [facility], [address] | | LAB | | | | [address], | | | | | | [place] [address] | | | | + + + + + + | Red Blood | 4.47Comment: Testing | 4.20 - 5.70 | EXTERNAL | | | Cells | performed at [facility], [address] | M/uL | LAB | | | Counted | [address], | | | | | | [place] [address] | | | | + + + + + + | Hemoglobin | 13.9Comment: Testing | 13.2 - 17.0 | EXTERNAL | | | | performed at [facility], [address] | g/dL | LAB | | | | [address], | | | | | | [place] [address] | | | | + + + + + + | Hematocrit, | 41.3Comment: Testing | 39.0 - 50.0 % | EXTERNAL | | | POC | performed at [facility], [address] | | LAB | | | [address], | | | | | | [place] [address] | | | | + + + + + + | MCV | 92.2Comment: Testing | 80.0 - 100.0 fl | EXTERNAL | | | | performed at [facility], [address] | | LAB | | | | [address], | | | | | | [place] [address] | | | | + + + + + + | MCH | 31.1Comment: Testing | 27.0 - 34.0 pg | EXTERNAL | | | | performed at [facility], [address] | | LAB | | | | [address], | | | | | | [place] [address] | | | | + + + + + + | MCHC | 33.7Comment: Testing | 32.0 - 35.5 | EXTERNAL | | | | performed at [facility], [address] | g/dL | LAB | | | | [address], | | | | | | [place] [address] | | | | + + + + + + | RDW-CV | 41.6Comment: Testing | 37 - 53 fl | EXTERNAL | | | | performed at [facility], [address] | | LAB | | | | [address], | | | | | | [place] [address] | | | | + + + + + + | Platelet | 159Comment: Testing | 150 - 400 K/uL | EXTERNAL | | | Count | performed at [facility], [address] | | LAB | | | Plasma | [address], | | | | | | [place] [address] | | | | + + + + + + | MPV | 9.8Comment: Testing | fl | EXTERNAL | | | | performed at [facility], [address] | | LAB | | | | [address], | | | | | | [place] [address] | | | | + + + + + + | Differentia | AUTOMATEDComment: | | EXTERNAL | | | l Type | Testing performed at | | LAB | | | | [facility], [address] | | | | | | [place] | | | | | | [address] | | | | + + + + + + | % Segmented | 62.0Comment: Testing | % | EXTERNAL | | | | performed at [facility], [address] | | LAB | | | Neutrophils | [address], | | | | | | [place] [address] | | | | + + + + + + | % | 25.6Comment: Testing | % | EXTERNAL | | | Lymphocytes | performed at [facility], [address] | | LAB | | | | [address], | | | | | | [place] [address] | | | | + + + + + + | % Monocytes | 11.2Comment: Testing | % | EXTERNAL | | | | performed at [facility], [address] | | LAB | | | | [address], | | | | | | [place] [address] | | | | + + + + + + | % | 1.0Comment: Testing | % | EXTERNAL | | | Eosinophils | performed at [facility], [address] | | LAB | | | | [address], | | | | | | [place] [address] | | | | + + + + + + | % Basophils | 0.2Comment: Testing | % | EXTERNAL | | | | performed at [facility], [address] | | LAB | | | | [address], | | | | | | [place] [address] | | | | + + + + + + | Absolute | 3.8Comment: Testing | 1.9 - 7.4 K/uL | EXTERNAL | | | Segmented | performed at [facility], [address] | | LAB | | | Neutrophils | [address], | | | | | | [place] [address] | | | | + + + + + + | Absolute | 1.6Comment: Testing | 1.0 - 3.9 K/uL | EXTERNAL | | | Lymphocytes | performed at [facility], [address] | | LAB | | | | [address], | | | | | | [place] [address] | | | | + + + + + + | Absolute | 0.7Comment: Testing | 0 - 0.8 K/uL | EXTERNAL | | | Monocytes | performed at [facility], [address] | | LAB | | | | [address], | | | | | | [place] [address] | | | | + + + + + + | Absolute | 0.1Comment: Testing | 0 - 0.5 K/uL | EXTERNAL | | | Eosinophils | performed at [facility], [address] | | LAB | | | | [address], | | | | | | [place] [address] | | | | + + + + + + | Absolute | 0.0Comment: Testing | 0 - 0.1 K/uL | EXTERNAL | | | Basophils | performed at [facility], [address] | | LAB | | | | [address], | | | | | | [place] [address] | | | | + + + [...] EXTERNAL | | | | performed at [facility];[address] | | LAB | | | | [address];[place], [place] | | | | | | [address] | | | | + + + [...] 67.63 ml D-E Excursion: 1.52 cm E-F [place]: 0.06 m/s EPSS: | | | 0.35 [...] TV A Ghanshyam: 0.27 m/s TV Dec [place]: 1.83 m/s2 TV Dec Time: | | | 212.74 ms TV E Ghanshyam: 0.39 m/s TV E/A Ratio: 1.42 | | | Direct Chill Caster: JASIEL Authenticated by: Reji Joy MD Report [...] | | (A-L): 25.81 ml/m2LAAs A2C: 23.49 [id number] A-L A2C: 76.86 mlLALs A2C: 6.09 | | cmLAAs A4C: 19.61 [id number] A-L A4C: 57.32 mlLALs A4C: 5.69 cmAo Diam: 3.55 cmAV | | Cusp: 1.79 cmLA Diam: 4.33 cmLA/Ao: 1.21%FS: 28.24 %EDV(Teich): 124.65 | | mlEF(Teich): 54.26 %ESV(Teich): 57.01 mlIVSd: 0.89 cmIVSs: 1.28 cmLVIDd: 5.11 | | cmLVIDs: 3.67 cmLVPWd: 0.85 cmLVPWs: 1.40 cmSV(Teich): 67.63 mlD-E Excursion: | | 1.52 cmE-F [place]lands: 0.06 m/sEPSS: 0.35 cmIVC diameter: 2.13 cmIVC collapse: 0.62 | | cmIVC % collapse: 68.59 %HR: 69.08 BPMAV maxP.29 mmHgAV meanP.01 mmHgAV | | Vmax: 1.25 m/Nick Vmean: 0.97 m/Nick VTI: 27.39 cmAVA Vmax: 4.65 cm2AVA (VTI): | | 4.06 sh9HGPH Dopp: 2.96 l/wxcc0VGLR Dopp: 7.88 l/minHR: 70.77 BPMLVOT maxPG: | [...] 23.33 cmTV A Ghanshyam: 0.27 m/sTV Dec [place]lands: 1.83 m/s2TV Dec Time: 212.74 msTV E | | Ghanshyam: 0.39 m/sTV E/A Ratio: 1.42 Direct Chill Caster: JASIELAuthenticated by: Reji Joy | | MDReport [...] | |D-E Excursion: 1.52 cm | |E-F [place]: 0.06 m/s | |EPSS: 0.35 cm | [...] A Ghanshyam: 0.27 m/s | |TV Dec [place]: 1.83 m/s2 | |TV Dec Time: 212.74 ms | |TV E Ghanshyam: 0.39 m/s | |TV E/A Ratio: 1.42 | | | |Direct Chill Caster: JASIEL | |Authenticated by: Reji Joy MD [...] ACUTE | | | | | | FL / STEMI Consider | | | | [...] | | | | | | PB (325) on 06/30/2014 | | | | | | 7:39:26 PM | | | | + + + + + + + + | Specimen | + + | | + + + + + | Narrative | Performed At | + + + | Historically converted procedure from [facility] | EXTERNAL LAB | + + [...] EXTERNAL | | | | performed at [facility];[address] | g/dL | LAB | | | | [address];[place] | | | | | | [address] | | | | + + + + + + | Hematocrit, | 42.4Comment: Testing | 39.0 - 50.0 % | EXTERNAL | | | POC | performed at [facility];[address] | | LAB | | | | [address];[place], [place] | | | | | | [address] | | | | + + + [...] EXTERNAL | | | | performed at [facility];[address] | | LAB | | | | [address];[place] | | | | | | [address] | | | | + + + [...] EXTERNAL | | | | performed at [facility];[address] | mmol/L | LAB | | | | [address];[place] | | | | | | [address] | | | | + + + + + + | K | 4.0Comment: Testing | 3.5 - 4.9 | EXTERNAL | | | | performed at [facility];[address] | mmol/L | LAB | | | | [address];[place] | | | | | | [address] | | | | + + + + + + | Cl | 104Comment: Testing | 99 - 109 mmol/L | EXTERNAL | | | | performed at [facility];[address] | | LAB | | | | [address];[place] | | | | | | [address] | | | | + + + + + + | CO2 | 26Comment: Testing | 23 - 32 mmol/L | EXTERNAL | | | | performed at [facility];[address] | | LAB | | | | [address];[place] | | | | | | [address] | | | | + + + + + + | Anion Gap | 11Comment: Testing | 5 - 20 mmol/L | EXTERNAL | | | | performed at [facility];[address] | | LAB | | | | [address];[place] | | | | | | [address] | | | | + + + + + + | Glucose, | 121 (H)Comment: Testing | 65 - 99 mg/dL | EXTERNAL | | | Fasting | performed at [facility];[address] | | LAB | | | | [address];[place] | | | | | | [address] | | | | + + + + + + | BUN | 11Comment: Testing | 8 - 25 mg/dL | EXTERNAL | | | | performed at [facility];[address] | | LAB | | | | [address];[place] | | | | | | [address] | | | | + + + + + + | Creatinine | 0.86Comment: Testing | 0.70 - 1.30 | EXTERNAL | | | | performed at [facility];[address] | mg/dL | LAB | | | | [address];[place] | | | | | | [address] | | | | + + + + + + | BUN/Creatin | 13Comment: Testing | | EXTERNAL | | | ine Ratio | performed at [facility];[address] | | LAB | | | | [address];[place] | | | | | | [address] | | | | + + + + + + | Calcium | 8.2 (L)Comment: NOTE NEW | 8.5 - 10.5 | EXTERNAL | | | | REFERENCE RANGETesting | mg/dL | LAB | | | | performed at [facility];[address] | | | | | | [facility];[place], [place] | | | | | | [address] | | | | + + + [...] | | | | | | at [facility];[address] | | | | | | [address];[place] [address] | | | | + + + [...] | | | | | | ACUTE FL / STEMI | | | | | | Consider right | | | | | | ventricular involvement | | | | | | in acute inferior | | | | | | infarctAbnormal ECGNo | | | | | | previous ECGs | | | | | | availableConfirmed by | | | | | | PB TREJO ([id number]) on | | | | | | 06/29/2014 9:24:55 PM | | | | + + + + + + + + | Specimen | + + | | + + + + + | Narrative | Performed At | + + + | Historically converted procedure from [facility] environment | EXTERNAL LAB | + + [...] obtained via right femoral artery and a 6-Cymro arterial | | | sheath was placed. A 6-Cymro JL4 catheter was then advanced under | | | fluoroscopic guidance and engaged with the ostium of the left main | | | coronary artery, and multiple projections of the left coronary | | | systems were obtained with the use of contrast injections. The | | | catheter was then exchanged to a 6-Cymro JR4 catheter, which was | | | advanced under fluoroscopic guidance and engaged with the ostium of | | | the right coronary artery, and multiple projections of the right | | | coronary artery were obtained with the use of contrast injections. | | | The catheter was then exchanged to a 6-Cymro pigtail catheter which | | | was [...] CORONARY INTERVENTION The patient has inferior posterior FL with | | | subtotal occlusion of [...] obtained via right femoral artery and a 6-Cymro arterial sheath was | | placed. A 6-Cymro JL4 catheter was then advanced under fluoroscopic | | guidance and engaged with the ostium of the left main coronary artery, and | | multiple projections of the left coronary systems were obtained with the | | use of contrast injections. The catheter was then exchanged to a 6-Cymro | | JR4 catheter, which was advanced under fluoroscopic guidance and engaged | | with the ostium of the right coronary artery, and multiple projections of | | the right coronary artery were obtained with the use of contrast | | injections. The catheter was then exchanged to a 6-Cymro pigtail catheter | | which was advanced [...] | | LEFT VENTRICULOGRAM | | An ULNDY view at the end of the procedure suggested mild hypokinesis of the | | inferior basal wall. Ejection fraction was 55%. | | | | CORONARY INTERVENTION | | The patient has inferior posterior FL with subtotal occlusion of the | | [...] obtained via right femoral artery and a 6-Cymro arterial | | | sheath was placed. A 6-Cymro JL4 catheter was then advanced under | | | fluoroscopic guidance and engaged with the ostium of the left main | | | coronary artery, and multiple projections of the left coronary | | | systems were obtained with the use of contrast injections. The | | | catheter was then exchanged to a 6-Cymro JR4 catheter, which was | | | advanced under fluoroscopic guidance and engaged with the ostium of | | | the right coronary artery, and multiple projections of the right | | | coronary artery were obtained with the use of contrast injections. | | | The catheter was then exchanged to a 6-Cymro pigtail catheter which | | | was [...] CORONARY INTERVENTION The patient has inferior posterior FL with | | | subtotal occlusion of [...] obtained via right femoral artery and a 6-Cymro arterial sheath was | | placed. A 6-Cymro JL4 catheter was then advanced under fluoroscopic | | guidance and engaged with the ostium of the left main coronary artery, and | | multiple projections of the left coronary systems were obtained with the | | use of contrast injections. The catheter was then exchanged to a 6-Cymro | | JR4 catheter, which was advanced under fluoroscopic guidance and engaged | | with the ostium of the right coronary artery, and multiple projections of | | the right coronary artery were obtained with the use of contrast | | injections. The catheter was then exchanged to a 6-Cymro pigtail catheter | | which was advanced [...] | | The patient has inferior posterior FL with subtotal occlusion of the | | [...] | | | Clotting | performed at [facility];[address] | seconds | LAB | | | time, POC | [address];[place], [place] | | | | | | [address] | | | | + + + [...] | | | Clotting | performed at [facility];[address] | seconds | LAB | | | time, POC | [address];[place] | | | | | | [address] | | | | + + + [...] | Diagnosis | + + | Acute FL, inferior wall, initial episode of care (HCC) Acute myocardial infarction of | | other inferior wall, initial episode of care | + + | CAD (coronary artery disease), [place] coronary artery Coronary atherosclerosis of | | [place] coronary artery | + + documented in this encounter
--- OUTSIDE RECORDS SUMMARY | ~2019-10-09 | XMS | Encounter Summary ---
Demographics + + + | Address | [address] | | | [place] [address] | + + + | Home Phone | | + + + | Preferred Language | Unknown | + + + | Marital Status | | + + + | Taoist Affiliation | Unknown | + + + | Race | Unknown | + + + | Ethnic Group | Unknown | + + + Author + + + | Author | [facility] | | | and [place] | + + + | Organization | [facility] | | | and [place] | + + + | Address | Unknown | + + + | Phone | Unavailable | + + + Care Team Providers + +------+ + | Care Lifeguard Name | Role | Phone | + +------+ + PCP | Unavailable | + +------+ + Encounter Details +--------+ + + + + | Date | Type | Department | Care Team | Description | +--------+ + + + + | 08/21/ | Orders Only | [facility] | Reji Joy MD | | | 2016 | | CARDIOLOGY [place] | [address] | | | | | [address] | [place] [address] | | | | | [address] | [phone] | | | | | [place], [place] | | | | | | [address] | | | | | | [phone] | | | +--------+ + + + [...] | + +--------+ + + + | STRESS ECG | Routin | 08/22/2015 | | Results for this | | | e | 3:54 PM | | procedure are in the | | | | PDT | | results section. | + +--------+ + + + documented in this encounter Results Stress ECG (08/22/2015 3:54 PM PDT) + + | Specimen | + + | | + + + + + | Narrative | Performed At | + + + | [facility] CARDIOLOGY Treadmill Stress Test TEST DATE: | | | 08/22/2015 INDICATION FOR TEST: 65 year old male being evaluated | | | for coronary artery disease RISK FACTORS: hypertension, | | | hyperlipidemia, stress PROCEDURE: Rober protocol. The predicted | | | exercise time was 08:00 minutes. Patient's Predicted Maximum HR: 153 | | | bpm. Patient's Predicted 85% Max HR: 130 bpm REST DATA: HR: 65 bpm | | | BP: 172 / 90 Rest EKG shows sinus rhythm with no significant ST or | | | T-wave abnormalities. STRESS DATA: Exercise Time: 09:22 minutes, | | | HR achieved: 141 bpm, Max BP: 212 / 85 . RPP: 50269. METS: 11.20. | | | Symptoms: winded The test was terminated due to patient shortness of | | | breath, walked to 92% MPHR. Stress EKG shows sinus tachycardia with | | | half millimeter ST depression in the lateral leads at peak exercise | | | and occasional PVCs which were seen more in the recovery phase. The | | | Peng Treadmill Score is 7. IMPRESSIONS: This is a low-risk stress | | | test. Occasional PVCs were seen during recovery phase. Reji | | | MD Ruf[place], [facility] Electronically signed by Reji Joy MD on | | | 08/24/2015 6:16 PM | | + + + + + | Procedure Note | + + | Jeff Gamble Conversion - 01/16/2019 9:58 AM [facility] | | Stress Test TEST DATE: 08/22/2015 INDICATION FOR TEST: 65 year old male being evaluated | | for coronary artery disease RISK FACTORS: hypertension, hyperlipidemia, stress | | PROCEDURE: Rober protocol. The predicted exercise time was 08:00 minutes. Patient's | | Predicted Maximum HR: 153 bpm. Patient's Predicted 85% Max HR: 130 bpm REST DATA: HR: 65 | | bpm BP: 172 / 90 Rest EKG shows sinus rhythm with no significant ST or T-wave | | abnormalities. STRESS DATA: Exercise Time: 09:22 minutes, HR achieved: 141 bpm, Max BP: | | 212 / 85 . RPP: 94824. METS: 11.20. Symptoms: winded The test was terminated due to | | patient shortness of breath, walked to 92% MPHR. Stress EKG shows sinus tachycardia with | | half millimeter ST depression in the lateral leads at peak exercise and occasional PVCs | | which were seen more in the recovery phase. The Peng Treadmill Score is 7. | | IMPRESSIONS:This is a low-risk stress test. Occasional PVCs were seen during recovery | | phase. Reji Joy MD, FACC | | PM | |STRESS DATA: Exercise Time: 09:22 minutes, HR achieved: 141 bpm, Max BP: 212 / 85 . RPP: 28 702. METS: 11.20. Symptoms: winded The test was terminated due to patient shortness of breat h, walked to 92% MPHR. Stress EKG shows sinus tachycardia with half | |millimeter ST depression in the lateral leads at peak exercise and occasional PVCs which we re seen more in the recovery phase. The Peng Treadmill Score is 7. | | | |IMPRESSIONS: | |This is a low-risk stress test. Occasional PVCs were seen during recovery phase. | | | |Reji Joy MD, FACC | | | | | + + documented in this encounter Visit Diagnoses Not on filedocumented in this encounter"
--- OUTSIDE RECORDS SUMMARY | ~2019-10-09 | XMS | Encounter Summary ---
Demographics + + + | Address | [address] | | | [place] [address] | + + + | Home Phone | | + + + | Preferred Language | Unknown | + + + | Marital Status | | + + + | Hindu Affiliation | Unknown | + + + | Race | Unknown | + + + | Ethnic Group | Unknown | + + + Author + + + | Author | [facility] | | | and [place] | + + + | Organization | [facility] | | | and [place] | + + + | Address | Unknown | + + + | Phone | Unavailable | + + + Care Team Providers + +------+ + | Care Card Grinder Helper Name | Role | Phone | + [...] Provider Unknown | | | | | [place], [place] | [phone] | | | | | [address] | | | | | | [phone] | | | +--------+ + + + [...]
--- OUTSIDE RECORDS SUMMARY | ~2019-10-09 | XMS | Encounter Summary ---
Demographics + + + | Address | [address] | | | [place] [address] | + + + | Home Phone | | + + + | Preferred Language | Unknown | + + + | Marital Status | | + + + | Baptism Affiliation | Unknown | + + + | Race | Unknown | + + + | Ethnic Group | Unknown | + + + Author + + + | Author | [facility] | | | and [place] | + + + | Organization | [facility] | | | and [place] | + + + | Address | Unknown | + + + | Phone | Unavailable | + + + Care Team Providers + +------+ + | Care Gas Fitter Apprentice Name | Role | Phone | + +------+ + PCP | Unavailable | + +------+ + Encounter Details +--------+ + + + + | Date | Type | Department | Care Team | Description | +--------+ + + + + | 09/05/ | Orders Only | [facility] | Reji Joy MD | | | 2018 | | CARDIOLOGY [place] | [address] | | | | | [address] | [place] [address] | | | | | [place], [place] | [phone] | | | | | [address] | | | | | | [phone] | | | +--------+ + + + [...]
--- OUTSIDE RECORDS SUMMARY | ~2019-10-09 | XMS | Encounter Summary ---
Demographics + + + | Address | [address] | | | [place] [address] | + + + | Home Phone | | + + + | Preferred Language | Unknown | + + + | Marital Status | | + + + | Mormon Affiliation | Unknown | + + + | Race | Unknown | + + + | Ethnic Group | Unknown | + + + Author + + + | Author | [facility] | | | and [place] | + + + | Organization | [facility] | | | and [place] | + + + | Address | Unknown | + + + | Phone | Unavailable | + + + Care Team Providers + +------+ + | Care Technology Sales Representative Name | Role | Phone | + +------+ + PCP | Unavailable | + +------+ + Encounter Details +--------+ + + + + | Date | Type | Department | Care Team | Description | +--------+ + + + + | 07/02/ | Orders Only | [facility] | Reji Joy MD | | | 2015 | | CARDIOLOGY [place] | [address] | | | | | [address] | [place] [address] | | | | | [place], [place] | [phone] | | | | | [address] | | | | | | [phone] | | | +--------+ + + + [...]
--- OUTSIDE RECORDS SUMMARY | ~2019-10-09 | XMS | Encounter Summary ---
Demographics + + + | Address | [address] | | | [place] [address] | + + + | Home Phone | | + + + | Preferred Language | Unknown | + + + | Marital Status | | + + + | Christianity Affiliation | Unknown | + + + | Race | Unknown | + + + | Ethnic Group | Unknown | + + + Author + + + | Author | [facility] | | | and [place] | + + + | Organization | [facility] | | | and [place] | + + + | Address | Unknown | + + + | Phone | Unavailable | + + + Care Team Providers + +------+ + | Care Die Maker Electronic Name | Role | Phone | + +------+ + PCP | Unavailable | + +------+ + Encounter Details +--------+ + + + + | Date | Type | Department | Care Team | Description | +--------+ + + + + | 08/21/ | Orders Only | [facility] | Reji Joy MD | | | 2016 | | CARDIOLOGY [place] | [address] | | | | | [address] | [place] [address] | | | | | [address] | [phone] | | | | | [place], [place] | | | | | | [address] | | | | | | [phone] | | | +--------+ + + + [...] Performed At | + + + | [facility] CARDIOLOGY Treadmill Stress Test TEST DATE: [...] Max BP: 212 / 85 . RPP: [id number]. METS: 11.20. | | | Symptoms: winded [...] phase. Reji | | | MD Ruf[place], [facility] Electronically signed by Reji Joy MD on | | | 08/24/2015 6:16 PM | | + + + + + | Procedure Note | + + | Jeff Gamble Conversion - 01/16/2019 9:58 AM [facility] | | Stress Test TEST DATE: 08/22/2015 [...] | | 212 / 85 . RPP: [id number]. METS: 11.20. Symptoms: winded The test was [...]
[~2019-10-09 10:19] MED LIST changes: +CLEOCIN HCL300 MG PO
[2019-10-09] MEDS ORDERED: CIPRO500 MG PO (11:37)
== END 2019-10-09 11:51 | disposition home or self-care (01) ==
LOC: ED 10:19
DX: R30.0 Dysuria (principal); R33.9 Retention of urine, unspecified; I10 Essential (primary) hypertension; I25.2 Old myocardial infarction; Z88.5 Allergy status to narcotic agent; Z79.899 Other long term (current) drug therapy
CPT/HCPCS: 51702; 51798; 81001; 87077; 87088; 87186; 99283-25

== ENCOUNTER 2020-12-26 06:40 | Emergency (ER) | payer MEDICARE ==
[~2020-12-26] VITALS: Ht 198.1 cm; Wt 131.5 kg
[~2020-12-26 06:40] MED LIST changes: +CIPRO500 MG PO
[2020-12-26] MEDS ORDERED: BACTRIM DS TAB1 EACH PO (08:37)
== END 2020-12-26 09:23 | disposition home or self-care (01) ==
LOC: ED 06:40
DX: N39.0 Urinary tract infection, site not specified (principal); I10 Essential (primary) hypertension; Z88.5 Allergy status to narcotic agent; Z79.899 Other long term (current) drug therapy; Z79.82 Long term (current) use of aspirin
CPT/HCPCS: 51798; 80048; 81001; 83605; 85025; 87040; 87088; 99283-25; J0696; J1885; J7030